=== PATIENT | male | born 1980 | race African-American/Black ===

== ENCOUNTER 2018-03-03 09:55 | Emergency (ER) | payer MEDICAID ==
[~2018-03-03] VITALS: Ht 190.5 cm; Wt 80.4 kg
[2018-03-03 10:12] VITALS: BP 114/64
[2018-03-03] MEDS ORDERED: KETOROLAC 30 MG/1 ML ONE (10:58)
[2018-03-03] MEDS ORDERED: KETOROLAC 30 MG/1 ML IM ONE (11:00)
== END 2018-03-03 11:18 | disposition home or self-care (01) ==
LOC: ED 11:12
DX: G89.11 Acute pain due to trauma (principal); M25.561 Pain in right knee; F17.200 Nicotine dependence, unspecified, uncomplicated
CPT/HCPCS: 73564; 96372; 99283; J1885

== ENCOUNTER 2018-04-18 23:12 | Emergency (ER) | payer MEDICAID ==
[~2018-04-18] VITALS: Ht 190.5 cm; Wt 87.3 kg
--- NOTE | 2018-04-18 23:25 | NUR ---
BIB [facility] FROM [facility] WITH CO SUDDEN ONSET GALO, "PRESSURE RIGHT EYE" X SEVERAL HOURS. ONSET WHILE SLEEPING. +LIGHT AND SOUND SENSITIVITY. PT REPORTS HX OF SAME, "IT USUALLY GOES AWAY IF I EAT". A&OX4; SPEECH CLEAR; FACE SYMMETRICAL; STRENGTH X4. PERRL. PT GIVEN PAIN MEDICATIONS AND ORAL GLUCOSE CATERING ATTENDANT FOR 10/10 PAIN AND FSBS OF 60. FSBS 120 UPON ARRIVAL. PT REPORTS TAKING RX'D INSULIN AROUND 1900 FOR HX OF DM.
[2018-04-18] MEDS ORDERED: PROCHLORPERAZINE 5 MG/ML, 2ML IVPush ONE (23:30)
[2018-04-18] MEDS ORDERED: SODIUM CHLORIDE 0.9% 1,000ML IVBOLUS ONE (23:30)
[2018-04-18] MEDS ORDERED: DIPHENHYDRAMINE 50 MG/ML, 1ML IVPush ONE (23:30)
[2018-04-18] MEDS ORDERED: SODIUM CHLORIDE FLUSH 10ML SYR IVF ONE (23:30)
[2018-04-18] MEDS ORDERED: PROCHLORPERAZINE 5 MG/ML, 2ML ONE (23:33)
[2018-04-18] MEDS ORDERED: DIPHENHYDRAMINE 50 MG/ML, 1ML ONE (23:33)
--- NOTE | 2018-04-18 23:41 | NUR ---
PT MEDICATED PER EMAR FOR 8 GALO.
[2018-04-18] MEDS ORDERED: OMNIPAQUE 350 MG/ML, 100ML BOTTLE ONE (23:55)
--- NOTE | 2018-04-19 00:53 | NUR ---
PT RESTING COMFORTABLY IN [place] WITH EYES CLOSED. EVEN/REGULAR RESPIRATIONS NOTED. BP/SPO2 MONITORING IN PLACE. AWAITING CT RESULTS
--- NOTE | 2018-04-19 01:24 | NUR ---
PT RESTING IN GURNEY; EASILY ARROUSABLE TO VOICE AND LIGHT PHYSICAL STIM. UPON RECHECK, FSBS 62. ERP AWARE. PT PROVIDED SANDWICH, STRING CHEESE AND JUICE AND IS EATING WO DIFFICULTY AT THIS TIME.
--- NOTE | 2018-04-19 01:39 | NUR ---
100% ON SANDWICH, CHEESE AND JUICE FINISHED. ERP AT BEDSIDE TO DISCUSS POC (OBS/FSBS RECHECK IN ONE HOUR/DISPO), PT DEMONSTRATES UNDERSTANDING.
[2018-04-19 01:42] LABS: MEAN CORPUSCULAR HGB CONC 35.2 g/dL (33.2-36.2); MEAN CORPUSCULAR VOLUME 90.9 fL (81-97); MEAN PLATELET VOLUME 7.2 fL (7.4-10.4); PLATELET COUNT 266 x10^3/uL (130-400); RED CELL DISTRIBUTION WIDTH 13.2 % (9.4-14.8)
[2018-04-19 01:47] LABS: ANION GAP 5 mmol/L (5-15); CALCIUM 7.9 mg/dL (8.5-10.1); CHLORIDE 107 mmol/L (98-107); CREATININE 0.98 mg/dL (0.7-1.3)
[2018-04-19 01:48] LABS: ALBUMIN 3.1 g/dL (3.4-5.0)
--- NOTE | 2018-04-19 02:24 | NUR ---
PT RESTING IN GURNEY WITH EYES CLOSED. EVEN/REGULAR RESPIRATIONS NOTED. PT MOSTLY SLEEPY, ARROUSABLE TO PHYSICAL STIM. FSBS RECHECKED, 130. BP/SPO2 MONITORING REMAIN IN PLACE.
[2018-04-19 02:32] LABS: BASOPHILS # (AUTO) 0.05 x10^3/uL (0-0.1); BASOPHILS % (AUTO) 1 % (0-1); EOSINOPHILS # (AUTO) 0.14 x10^3/uL (0-0.4); EOSINOPHILS % (AUTO) 2 % (1-7); LYMPHOCYTES # (AUTO) 2.08 x10^3/uL (1-3.4); LYMPHOCYTES % (AUTO) 29 % (22-44); MD SCAN; MONOCYTES % (AUTO) 7 % (2-9); NEUTROPHILS # (AUTO) 4.36 x10^3/uL (1.8-6.8); NEUTROPHILS % (AUTO) 61 % (42-75)
[2018-04-19 02:58] VITALS: BP 117/68
--- NOTE | 2018-04-19 02:58 | NUR ---
FSBS RECHECKED. ERP AWARE. POC IS DC.
--- NOTE | 2018-04-19 03:12 | NUR ---
DC EDUCATION PROVIDED, PT DEMONSTRATES UNDERSTANDING. PT TRANSFERED SELF STEADILY TO WHEELCHAIR AT DOORWAY. WHEELED TO DC WITH RN. PT DRESSED APPROPRIATELY FOR WEATHER. TAXI VOUCHER PROVIDED FOR SAFE TRANSPORT TO ASSISTED.
== END 2018-04-19 03:14 | disposition home or self-care (01) ==
LOC: ED 23:33
DX: E11.649 Type 2 diabetes mellitus with hypoglycemia without coma (principal); R51 Headache; F17.200 Nicotine dependence, unspecified, uncomplicated
CPT/HCPCS: 70450; 70496; 80048; 82040; 82962; 85025; 96361; 96374; 96375; 99284; J0780; J1200; J7030; Q9967

== ENCOUNTER 2018-04-21 09:15 | Emergency (ER) | payer MEDICAID ==
[~2018-04-21] VITALS: Ht 190.5 cm; Wt 83.0 kg
[2018-04-21] MEDS ORDERED: METOCLOPRAMIDE 5 MG/ML, 2ML IVPush ONE (10:00)
[2018-04-21] MEDS ORDERED: DIPHENHYDRAMINE 50 MG/ML, 1ML IVPush ONE (10:00)
[2018-04-21] MEDS ORDERED: SODIUM CHLORIDE FLUSH 10ML SYR IVF ONE (10:00)
--- NOTE | 2018-04-21 10:09 | NUR ---
PATIENT TO RAD
[2018-04-21] MEDS ORDERED: METOCLOPRAMIDE 5 MG/ML, 2ML ONE (10:26)
[2018-04-21] MEDS ORDERED: DIPHENHYDRAMINE 50 MG/ML, 1ML ONE (10:26)
--- NOTE | 2018-04-21 10:39 | NUR ---
PATIENT MOVED TO ROOM 4, IV ESTABLISHED. PATIENT MEDICATED AND WALKS TO BATHROOM. C/O PHOTPHOBIA BUT HAS STEADY GAIT
--- NOTE | 2018-04-21 11:15 | NUR ---
PATIENT REPORTS DECREASE IN GALO TO 7/10. COMFORT MEASURES TAKEN. PATIENT IN RECHECK
[2018-04-21 11:41] VITALS: BP 118/62
== END 2018-04-21 11:43 | disposition home or self-care (01) ==
LOC: ED 09:52
DX: R51 Headache (principal); R11.10 Vomiting, unspecified; E11.9 Type 2 diabetes mellitus without complications
CPT/HCPCS: 70450; 96374; 96375; 99284; J1200; J2765

== ENCOUNTER 2018-06-27 07:16 | Emergency (ER) | payer MEDICAID ==
[~2018-06-27] VITALS: Ht 190.5 cm; Wt 82.0 kg
[2018-06-27] MEDS ORDERED: HYDROcodone/APAP 5/325 TABLET PO PRN (07:30)
--- NOTE | 2018-06-27 07:30 | NUR ---
PT BIB [facility] FROM [facility] FOR RIGHT FOOT AND LEG PAIN. REPORTS PINS AND NEEDLES GOING FROM THE FOOT TO THE KNEE. REPORTS HISTORY OF DM II, AND NEUROPATHY. STATED THAT THE PINS AND NEEDLES STARTED YESTERDAY. DENIES INJURY. CMS INTACT. PT IS ALERT, ORIENTED, WITH NAD. FS 272, BP 115/71, HR 82, 100 RA.
[2018-06-27] MEDS ORDERED: HYDROcodone/APAP 5/325 TABLET ONE (07:33)
[2018-06-27] MEDS ORDERED: INSU100I34 SQ (07:36)
--- NOTE | 2018-06-27 07:47 | NUR ---
x ray at bedside.
[2018-06-27 08:02] LABS: MEAN CORPUSCULAR VOLUME 88.3 fL (81-97); MEAN PLATELET VOLUME 7.5 fL (7.4-10.4); PLATELET COUNT 291 x10^3/uL (130-400); RED BLOOD COUNT 4.93 x10^6/uL (4.38-5.82); RED CELL DISTRIBUTION WIDTH 13.1 % (9.4-14.8)
[2018-06-27 08:09] LABS: ALBUMIN 3.2 g/dL (3.4-5.0); ANION GAP 6 mmol/L (5-15); CALCIUM 7.9 mg/dL (8.5-10.1); CHLORIDE 109 mmol/L (98-107); CREATININE 1.01 mg/dL (0.7-1.3)
[2018-06-27 08:41] VITALS: BP 116/79
--- NOTE | 2018-06-27 08:42 | NUR ---
Pt requested light off. Pt given warm blanket. Pt is now resting in bed with eyes closed, respirations equal and non labored. NAD. Pt is connected to the monitor. Call light within reach.
[2018-06-27 08:53] LABS: MD YES
[2018-06-27 08:55] LABS: BAND#(MANUAL) 0.06 x10^3/uL; BANDS%(MANUAL) 1 % (0-7); BASOS#(MANUAL) 0.06 x10^3/uL (0-0.1); BASOS% (MANUAL) 1 % (0-1); EOS#(MANUAL) 0.11 x10^3/uL (0.0-0.4); EOS% (MANUAL) 2 % (1-7); LYMPH#(MANUAL) 2.18 x10^3/uL (1-3.4); LYMPHS% (MANUAL) 39 % (22-44); MONOS#(MANUAL) 0.11 x10^3/uL (0.3-2.7); MONOS% (MANUAL) 2 % (2-9); REACTIVE LYMPHS # (MANUAL) 0.06 x10^3/uL (0-0); REACTIVE LYMPHS % (MANUAL) 1 % (0-0); SEG#(MANUAL) 3.02 x10^3/uL (1.8-6.8); SEGS% (MANUAL) 54 % (42-75)
[2018-06-27 08:56] LABS: <RBC MORPHOLOGY> NORMAL
[2018-06-27 08:57] LABS: <PLATELET ESTIMATE> ADEQUATE; <PLT MORPHOLOGY> NORMAL PLT MORPH
--- NOTE | 2018-06-27 09:21 | NUR ---
PT AMBULATED TO THE BATHROOM WITH STEADY GAIT.
--- NOTE | 2018-06-27 09:46 | NUR ---
Patient given discharge instructions and they have confirmed that they understand the instructions. Patient ambulatory with steady gait.
== END 2018-06-27 09:48 | disposition home or self-care (01) ==
LOC: ED 08:00
DX: M79.671 Pain in right foot (principal); E11.65 Type 2 diabetes mellitus with hyperglycemia; Z76.0 Encounter for issue of repeat prescription; F17.210 Nicotine dependence, cigarettes, uncomplicated
CPT/HCPCS: 36415; 80048; 82040; 85025; 99284

== ENCOUNTER 2019-02-19 08:37 | Inpatient (IN) | payer MEDICAID ==
[~2019-02-19] VITALS: Ht 190.5 cm; Wt 84.4 kg
[~2019-02-19 08:37] MED LIST: INSU100I34 SQ
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
[2019-02-19 09:09] LABS: MICROSCOPIC NOT IND
[2019-02-19 09:12] LABS: CULTURE INDICATED? NO
[2019-02-19 09:32] LABS: BASOPHILS # (AUTO) 0.02 x10^3/uL (0-0.1); BASOPHILS % (AUTO) 0 % (0-1); EOSINOPHILS # (AUTO) 0.02 x10^3/uL (0-0.4); EOSINOPHILS % (AUTO) 0 % (1-7); LYMPHOCYTES % (AUTO) 18 % (22-44); MD NO; MEAN CORPUSCULAR HEMOGLOBIN 31.2 pg (27.5-34.5); MEAN CORPUSCULAR HGB CONC 33.9 g/dL (33.2-36.2); MEAN CORPUSCULAR VOLUME 92.2 fL (81-97); MEAN PLATELET VOLUME 7.6 fL (7.4-10.4); MONOCYTES # (AUTO) 0.44 x10^3/uL (0.2-0.8); MONOCYTES % (AUTO) 6 % (2-9); NEUTROPHILS # (AUTO) 5.54 x10^3/uL (1.8-6.8); NEUTROPHILS % (AUTO) 76 % (42-75); PH, VENOUS 7.362 pH (7.320-7.420); PLATELET COUNT 290 x10^3/uL (130-400); RED BLOOD COUNT 5.52 x10^6/uL (4.38-5.82); RED CELL DISTRIBUTION WIDTH 13.1 % (9.4-14.8)
[2019-02-19 09:33] LABS: FIO2 ROOM AIR %
--- NOTE | 2019-02-19 10:04 | NUR ---
Patient is resting comfortably in bed. Vital Signs within normal limits.
[2019-02-19 10:13] LABS: ACETONE, SERUM Small (20mg/dL) mg/dL (Negative); ALBUMIN 3.7 g/dL (3.4-5.0); ANION GAP 11 mmol/L (5-15); CALCIUM 8.6 mg/dL (8.5-10.1); CHLORIDE 90 mmol/L (98-107); CREATININE 1.42 mg/dL (0.7-1.3)
[2019-02-19] MEDS ORDERED: INSULIN REGULAR 100 UNITS/ML, 3ML VIAL SQ-INSULIN ONE (10:30)
[2019-02-19] MEDS ORDERED: SODIUM CHLORIDE 0.9% 1,000ML IVBOLUS ONE ×2 (10:30→12:00)
[2019-02-19] MEDS ORDERED: INSULIN SINGLE DOSE, ER ONE (10:41)
--- NOTE | 2019-02-19 11:01 | NUR ---
REPORT CALLED TO CADENCE STEPHENSON. NO QUESTIONS AT THIS TIME. PATIENT AWARE OF TRANSFER.
--- NOTE | 2019-02-19 11:24 | NUR ---
REPORT CALLED TO ROSSANA STEPHENSON. PATIET AWARE OF TRANSFER.
[2019-02-19] MEDS ORDERED: INSULIN LISPRO 100 UNITS/ML, PEN SQ-INSULIN SCH (12:00)
[2019-02-19] MEDS ORDERED: POLYETHYLENE GLYCOL 17 GM PACKET PO PRN (12:00)
[2019-02-19] MEDS ORDERED: LABETALOL 5MG/ML, 20ML IVPush PRN (12:00)
[2019-02-19] MEDS ORDERED: BISACODYL 10 MG SUPP PR PRN (12:00)
[2019-02-19] MEDS ORDERED: ONDANSETRON 2MG/ML, 2ML IVPush PRN (12:00)
[2019-02-19] MEDS ORDERED: ONDANSETRON ODT 4 MG PO PRN (12:00)
[2019-02-19] MEDS: SODIUM CHLORIDE 0.9% 1,000 ML IV SCH ×2 (12:05→19:33)
[2019-02-19] MEDS: ENOXAPARIN 40 MG/0.4 ML SQ SCH (12:17)
[2019-02-19] MEDS: INSULIN GLARGINE 100 UNITS/ML, PEN SQ-INSULIN SCH ×2 (12:19→20:41)
[2019-02-19 15:07] LABS: AMPHETAMINE SCREEN, URINE Negative (Negative); BARBITURATE SCREEN, URINE Negative (Negative)
[2019-02-19 15:20] LABS: BENZODIAZEPINE SCREEN, URINE Negative (Negative); CANNABINOID SCREEN, URINE Positive (Negative); COCAINE SCREEN, URINE Negative (Negative); METHADONE SCREEN, URINE Negative (Negative); OPIATE SCREEN, URINE Negative (Negative)
[2019-02-19] MEDS: INSULIN LISPRO 100 UNITS/ML, PEN SQ-INSULIN SCH ×2 (16:00→20:40)
[2019-02-19 16:53] LABS: ANION GAP 7 mmol/L (5-15); CALCIUM 8.1 mg/dL (8.5-10.1); CHLORIDE 106 mmol/L (98-107); CREATININE 0.85 mg/dL (0.7-1.3)
[2019-02-19] MEDS: ACETAMINOPHEN 325 MG TABLET PO PRN (17:55)
[2019-02-19 19:05] VITALS: BP 150/89
[2019-02-20 01:57] VITALS: BP 141/93
[2019-02-20] MEDS: SODIUM CHLORIDE 0.9% 1,000 ML IV SCH ×4 (05:04→18:54)
[2019-02-20 05:49] LABS: BASOPHILS # (AUTO) 0.04 x10^3/uL (0-0.1); BASOPHILS % (AUTO) 1 % (0-1); EOSINOPHILS # (AUTO) 0.05 x10^3/uL (0-0.4); EOSINOPHILS % (AUTO) 1 % (1-7); LYMPHOCYTES # (AUTO) 1.98 x10^3/uL (1-3.4); LYMPHOCYTES % (AUTO) 24 % (22-44); MD NO; MEAN CORPUSCULAR HEMOGLOBIN 31.8 pg (27.5-34.5); MEAN CORPUSCULAR HGB CONC 34.1 g/dL (33.2-36.2); MEAN CORPUSCULAR VOLUME 93.2 fL (81-97); MEAN PLATELET VOLUME 7.1 fL (7.4-10.4); MONOCYTES # (AUTO) 0.51 x10^3/uL (0.2-0.8); MONOCYTES % (AUTO) 6 % (2-9); NEUTROPHILS # (AUTO) 5.69 x10^3/uL (1.8-6.8); NEUTROPHILS % (AUTO) 69 % (42-75); PLATELET COUNT 305 x10^3/uL (130-400); RED BLOOD COUNT 4.97 x10^6/uL (4.38-5.82); RED CELL DISTRIBUTION WIDTH 13.6 % (9.4-14.8)
[2019-02-20 06:01] LABS: ALANINE AMINOTRANSFERASE 25 U/L (12-78); ALBUMIN 2.9 g/dL (3.4-5.0); ANION GAP 6 mmol/L (5-15); CALCIUM 7.8 mg/dL (8.5-10.1); CHLORIDE 103 mmol/L (98-107); CREATININE 0.81 mg/dL (0.7-1.3)
[2019-02-20 06:03] LABS: ALKALINE PHOSPHATASE 105 U/L (45-117); BILIRUBIN,TOTAL 0.4 mg/dL (0.2-1.0)
[2019-02-20 07:05] VITALS: BP 144/97
[2019-02-20] MEDS: SENNA/DOCUSATE TABLET PO SCH (09:00)
[2019-02-20] MEDS: INSULIN LISPRO 100 UNITS/ML, PEN SQ-INSULIN SCH ×4 (09:13→20:37)
[2019-02-20] MEDS: INSULIN GLARGINE 100 UNITS/ML, PEN SQ-INSULIN SCH ×2 (09:13→20:37)
[2019-02-20] MEDS ORDERED: SODIUM CHLORIDE 0.9% 1,000 ML IV SCH (11:47)
[2019-02-20] MEDS ORDERED: INSULIN LISPRO 100 UNITS/ML, PEN SQ-INSULIN ONE (13:00)
[2019-02-20 14:00] VITALS: BP 145/98
[2019-02-20] MEDS: CEFTAROLINE 600 MG in SODIUM CHLORIDE 0.9% 100 ML IV SCH (14:08)
[2019-02-20] MEDS ORDERED: INSULIN LISPRO 100 UNITS/ML, PEN SQ-INSULIN SCH (16:00)
[2019-02-20] MEDS ORDERED: FLUO20CA19 PO (16:15)
[2019-02-20] MEDS ORDERED: ASEN5TAB7 SL (16:15)
[2019-02-20 18:42] VITALS: BP 129/85
[2019-02-20] MEDS: ACETAMINOPHEN 325 MG TABLET PO PRN (20:27)
[2019-02-20] MEDS: ENOXAPARIN 40 MG/0.4 ML SQ SCH (20:27)
[2019-02-21 01:24] VITALS: BP 123/70
[2019-02-21] MEDS: SODIUM CHLORIDE 0.9% 1,000 ML IV SCH ×3 (02:04→19:37)
[2019-02-21] MEDS: CEFTAROLINE 600 MG in SODIUM CHLORIDE 0.9% 100 ML IV SCH ×2 (02:04→14:32)
[2019-02-21 04:54] LABS: MD NO; MEAN PLATELET VOLUME 7.3 fL (7.4-10.4)
[2019-02-21 05:06] LABS: ANION GAP 6 mmol/L (5-15); CALCIUM 7.9 mg/dL (8.5-10.1); CHLORIDE 104 mmol/L (98-107)
[2019-02-21 05:07] LABS: CREATININE 0.86 mg/dL (0.7-1.3)
[2019-02-21 05:09] LABS: BASOPHILS # (AUTO) 0.04 x10^3/uL (0-0.1); BASOPHILS % (AUTO) 1 % (0-1); EOSINOPHILS # (AUTO) 0.08 x10^3/uL (0-0.4); EOSINOPHILS % (AUTO) 1 % (1-7); LYMPHOCYTES # (AUTO) 2.01 x10^3/uL (1-3.4); LYMPHOCYTES % (AUTO) 23 % (22-44); MEAN CORPUSCULAR HEMOGLOBIN 31.6 pg (27.5-34.5); MEAN CORPUSCULAR HGB CONC 34.5 g/dL (33.2-36.2); MEAN CORPUSCULAR VOLUME 91.7 fL (81-97); MONOCYTES # (AUTO) 0.75 x10^3/uL (0.2-0.8); MONOCYTES % (AUTO) 8 % (2-9); NEUTROPHILS # (AUTO) 6.03 x10^3/uL (1.8-6.8); NEUTROPHILS % (AUTO) 68 % (42-75); PLATELET COUNT 290 x10^3/uL (130-400); RED BLOOD COUNT 4.91 x10^6/uL (4.38-5.82); RED CELL DISTRIBUTION WIDTH 13.3 % (9.4-14.8)
[2019-02-21 05:20] LABS: HEMOGLOBIN A1C 8.8 % (4.2-6.3)
[2019-02-21 07:15] VITALS: BP 138/91
[2019-02-21] MEDS: INSULIN GLARGINE 100 UNITS/ML, PEN SQ-INSULIN SCH (07:57)
[2019-02-21] MEDS: INSULIN LISPRO 100 UNITS/ML, PEN SQ-INSULIN SCH ×3 (07:58→16:03)
[2019-02-21] MEDS: SENNA/DOCUSATE TABLET PO SCH (07:58)
[2019-02-21 14:00] VITALS: BP 144/88
[2019-02-21] MEDS ORDERED: INSULIN GLARGINE 100 UNITS/ML, PEN SQ-INSULIN SCH (17:00)
[2019-02-21 20:12] VITALS: BP 138/83
[2019-02-21] MEDS ORDERED: INSULIN LISPRO 100 UNIT/ML, 3ML VIAL SQ-INSULIN SCH (21:00)
[2019-02-21] MEDS: ENOXAPARIN 40 MG/0.4 ML SQ SCH (21:00)
[2019-02-21] MEDS ORDERED: INSULIN GLARGINE 100 UNITS/ML, PEN SQ-INSULIN ONE (21:30)
[2019-02-21] MEDS: ACETAMINOPHEN 325 MG TABLET PO PRN (22:00)
[2019-02-22 02:05] VITALS: BP 126/76
[2019-02-22] MEDS: SODIUM CHLORIDE 0.9% 1,000 ML IV SCH ×2 (02:32→20:20)
[2019-02-22] MEDS: CEFTAROLINE 600 MG in SODIUM CHLORIDE 0.9% 100 ML IV SCH ×2 (02:47→17:02)
[2019-02-22] MEDS ORDERED: INSULIN GLARGINE 100 UNITS/ML, PEN SQ-INSULIN SCH (05:00)
[2019-02-22 05:44] LABS: INTERNATIONAL NORMALIZED RATIO 0.96 (0.93-1.1); PROTHROMBIN TIME 10.1 Seconds (9.6-11.5)
[2019-02-22 05:48] LABS: ANION GAP 3 mmol/L (5-15); CALCIUM 8.1 mg/dL (8.5-10.1); CHLORIDE 107 mmol/L (98-107)
[2019-02-22 05:49] LABS: CREATININE 0.77 mg/dL (0.7-1.3)
[2019-02-22 07:29] VITALS: BP 134/79
[2019-02-22] MEDS: INSULIN LISPRO 100 UNITS/ML, PEN SQ-INSULIN SCH ×4 (07:49→22:12)
[2019-02-22] MEDS: INSULIN GLARGINE 100 UNITS/ML, PEN SQ-INSULIN SCH ×2 (07:50→22:11)
[2019-02-22] MEDS: SENNA/DOCUSATE TABLET PO SCH (07:50)
[2019-02-22 12:52] VITALS: BP 110/72
[2019-02-22] MEDS ORDERED: FENTANYL PF 100 MCG/2ML ONE ×2 (15:52→16:15)
[2019-02-22] MEDS ORDERED: MIDAZOLAM 1 MG/ML, 2ML ONE (15:53)
[2019-02-22] MEDS ORDERED: METOCLOPRAMIDE 5 MG/ML, 2ML ONE (15:55)
[2019-02-22] MEDS ORDERED: ONDANSETRON 2MG/ML, 2ML ONE (15:55)
[2019-02-22] MEDS ORDERED: KETOROLAC 30 MG/1 ML ONE (15:59)
[2019-02-22] MEDS ORDERED: LABETALOL 5MG/ML, 20ML IV PRN (16:00)
[2019-02-22] MEDS ORDERED: ACETAMINOPHEN 325 MG TABLET PO PRN (16:00)
[2019-02-22] MEDS ORDERED: OXYcodone 5 MG/5 ML ORAL.SOL UDC PO PRN (16:00)
[2019-02-22] MEDS ORDERED: hydrALAzine 20 MG/ML, 1ML IV PRN (16:00)
[2019-02-22] MEDS ORDERED: FENTANYL PF 100 MCG/2ML IV PRN (16:00)
[2019-02-22] MEDS ORDERED: MEPERIDINE/PF 25MG/ML,1ML IVPush PRN (16:00)
[2019-02-22] MEDS ORDERED: PROMETHAZINE 25 MG/ML, 1ML IV PRN (16:00)
[2019-02-22] MEDS ORDERED: HYDROmorphone 2 MG/ML, 1ML IVPush PRN (16:00)
[2019-02-22] MEDS ORDERED: ONDANSETRON 2MG/ML, 2ML IV PRN (16:00)
[2019-02-22] MEDS: NICOTINE 21 MG/24 HR PATCH.TD24 TD SCH (18:10)
[2019-02-22 19:14] VITALS: BP 113/66
[2019-02-22] MEDS: ENOXAPARIN 40 MG/0.4 ML SQ SCH (22:09)
[2019-02-23 00:16] VITALS: BP 126/75
[2019-02-23] MEDS: SODIUM CHLORIDE 0.9% 1,000 ML IV SCH ×3 (02:45→20:59)
[2019-02-23] MEDS: ACETAMINOPHEN 325 MG TABLET PO PRN (02:57)
[2019-02-23] MEDS: CEFTAROLINE 600 MG in SODIUM CHLORIDE 0.9% 100 ML IV SCH ×2 (05:11→16:40)
[2019-02-23 05:49] LABS: ALBUMIN 2.4 g/dL (3.4-5.0); ANION GAP 4 mmol/L (5-15); CHLORIDE 108 mmol/L (98-107)
[2019-02-23 05:53] LABS: ALANINE AMINOTRANSFERASE 24 U/L (12-78); ALKALINE PHOSPHATASE 93 U/L (45-117); BILIRUBIN,TOTAL 0.3 mg/dL (0.2-1.0); CREATININE 0.87 mg/dL (0.7-1.3); TOTAL PROTEIN 6.2 g/dL (6.4-8.2)
[2019-02-23 06:00] LABS: BASOPHILS # (AUTO) 0.04 x10^3/uL (0-0.1); BASOPHILS % (AUTO) 1 % (0-1); EOSINOPHILS # (AUTO) 0.05 x10^3/uL (0-0.4); EOSINOPHILS % (AUTO) 1 % (1-7); LYMPHOCYTES # (AUTO) 2.24 x10^3/uL (1-3.4); LYMPHOCYTES % (AUTO) 34 % (22-44); MD NO; MEAN CORPUSCULAR HEMOGLOBIN 31.5 pg (27.5-34.5); MEAN CORPUSCULAR HGB CONC 34.4 g/dL (33.2-36.2); MEAN CORPUSCULAR VOLUME 91.5 fL (81-97); MEAN PLATELET VOLUME 6.9 fL (7.4-10.4); MONOCYTES # (AUTO) 0.55 x10^3/uL (0.2-0.8); MONOCYTES % (AUTO) 8 % (2-9); NEUTROPHILS # (AUTO) 3.72 x10^3/uL (1.8-6.8); NEUTROPHILS % (AUTO) 56 % (42-75); PLATELET COUNT 332 x10^3/uL (130-400); RED BLOOD COUNT 4.44 x10^6/uL (4.38-5.82); RED CELL DISTRIBUTION WIDTH 13.1 % (9.4-14.8)
[2019-02-23 06:35] VITALS: BP 125/84
[2019-02-23] MEDS: INSULIN LISPRO 100 UNITS/ML, PEN SQ-INSULIN SCH ×4 (08:35→21:01)
[2019-02-23] MEDS: NICOTINE 21 MG/24 HR PATCH.TD24 TD SCH (08:36)
[2019-02-23] MEDS: INSULIN GLARGINE 100 UNITS/ML, PEN SQ-INSULIN SCH ×2 (08:36→21:00)
[2019-02-23] MEDS: SENNA/DOCUSATE TABLET PO SCH (08:36)
[2019-02-23 13:14] VITALS: BP 123/77
[2019-02-23 18:30] VITALS: BP 130/80
[2019-02-23] MEDS: ENOXAPARIN 40 MG/0.4 ML SQ SCH (20:59)
[2019-02-24 01:02] VITALS: BP 132/86
[2019-02-24] MEDS: SODIUM CHLORIDE 0.9% 1,000 ML IV SCH ×4 (02:46→23:43)
[2019-02-24 04:52] LABS: BASOPHILS # (AUTO) 0.07 x10^3/uL (0-0.1); BASOPHILS % (AUTO) 1 % (0-1); EOSINOPHILS % (AUTO) 1 % (1-7); LYMPHOCYTES # (AUTO) 2.52 x10^3/uL (1-3.4); LYMPHOCYTES % (AUTO) 36 % (22-44); MD NO; MEAN CORPUSCULAR HEMOGLOBIN 31.4 pg (27.5-34.5); MEAN CORPUSCULAR HGB CONC 33.7 g/dL (33.2-36.2); MEAN CORPUSCULAR VOLUME 93.2 fL (81-97); MEAN PLATELET VOLUME 6.9 fL (7.4-10.4); MONOCYTES % (AUTO) 8 % (2-9); NEUTROPHILS # (AUTO) 3.82 x10^3/uL (1.8-6.8); NEUTROPHILS % (AUTO) 54 % (42-75); PLATELET COUNT 379 x10^3/uL (130-400); RED BLOOD COUNT 4.68 x10^6/uL (4.38-5.82); RED CELL DISTRIBUTION WIDTH 13.1 % (9.4-14.8)
[2019-02-24 05:06] LABS: ANION GAP 4 mmol/L (5-15); CALCIUM 8.1 mg/dL (8.5-10.1); CHLORIDE 104 mmol/L (98-107)
[2019-02-24 05:08] LABS: CREATININE 1.09 mg/dL (0.7-1.3)
[2019-02-24] MEDS: CEFTAROLINE 600 MG in SODIUM CHLORIDE 0.9% 100 ML IV SCH ×2 (05:09→17:12)
[2019-02-24 06:54] VITALS: BP 128/79
[2019-02-24] MEDS: INSULIN GLARGINE 100 UNITS/ML, PEN SQ-INSULIN SCH ×2 (08:12→20:47)
[2019-02-24] MEDS: SENNA/DOCUSATE TABLET PO SCH (08:13)
[2019-02-24] MEDS: NICOTINE 21 MG/24 HR PATCH.TD24 TD SCH (08:13)
[2019-02-24] MEDS: INSULIN LISPRO 100 UNITS/ML, PEN SQ-INSULIN SCH ×4 (08:13→20:51)
[2019-02-24 12:21] VITALS: BP 132/85
[2019-02-24] MEDS ORDERED: PROPOFOL 10 MG/ML, 20ML ONE (16:00)
[2019-02-24 19:21] VITALS: BP 134/81
[2019-02-24] MEDS: ENOXAPARIN 40 MG/0.4 ML SQ SCH (20:45)
[2019-02-25 00:22] VITALS: BP 117/78
[2019-02-25] MEDS: CEFTAROLINE 600 MG in SODIUM CHLORIDE 0.9% 100 ML IV SCH ×2 (05:10→17:11)
[2019-02-25] MEDS: SODIUM CHLORIDE 0.9% 1,000 ML IV SCH ×3 (05:12→17:00)
[2019-02-25 07:38] VITALS: BP 130/86
[2019-02-25] MEDS: SENNA/DOCUSATE TABLET PO SCH (09:00)
[2019-02-25] MEDS: INSULIN LISPRO 100 UNITS/ML, PEN SQ-INSULIN SCH ×4 (09:17→22:53)
[2019-02-25] MEDS: NICOTINE 21 MG/24 HR PATCH.TD24 TD SCH (09:50)
[2019-02-25] MEDS: INSULIN GLARGINE 100 UNITS/ML, PEN SQ-INSULIN SCH ×2 (09:51→22:53)
[2019-02-25 13:51] VITALS: BP 136/79
[2019-02-25 19:09] VITALS: BP 131/94
[2019-02-25] MEDS: ENOXAPARIN 40 MG/0.4 ML SQ SCH (21:00)
[2019-02-26 00:29] VITALS: BP 117/72
[2019-02-26] MEDS: SODIUM CHLORIDE 0.9% 1,000 ML IV SCH ×3 (02:07→14:36)
[2019-02-26] MEDS: CEFTAROLINE 600 MG in SODIUM CHLORIDE 0.9% 100 ML IV SCH (05:29)
[2019-02-26 06:02] LABS: BASOPHILS # (AUTO) 0.05 x10^3/uL (0-0.1); BASOPHILS % (AUTO) 1 % (0-1); EOSINOPHILS # (AUTO) 0.11 x10^3/uL (0-0.4); EOSINOPHILS % (AUTO) 2 % (1-7); LYMPHOCYTES # (AUTO) 2.12 x10^3/uL (1-3.4); LYMPHOCYTES % (AUTO) 27 % (22-44); MD NO; MEAN CORPUSCULAR HEMOGLOBIN 31.7 pg (27.5-34.5); MEAN CORPUSCULAR HGB CONC 34.5 g/dL (33.2-36.2); MEAN CORPUSCULAR VOLUME 91.8 fL (81-97); MEAN PLATELET VOLUME 6.4 fL (7.4-10.4); MONOCYTES # (AUTO) 0.63 x10^3/uL (0.2-0.8); MONOCYTES % (AUTO) 8 % (2-9); NEUTROPHILS # (AUTO) 4.85 x10^3/uL (1.8-6.8); NEUTROPHILS % (AUTO) 62 % (42-75); PLATELET COUNT 414 x10^3/uL (130-400); RED BLOOD COUNT 4.77 x10^6/uL (4.38-5.82); RED CELL DISTRIBUTION WIDTH 13.2 % (9.4-14.8)
[2019-02-26 06:12] LABS: CHLORIDE 105 mmol/L (98-107)
[2019-02-26 06:26] LABS: ANION GAP 5 mmol/L (5-15); CALCIUM 8.7 mg/dL (8.5-10.1); CREATININE 0.98 mg/dL (0.7-1.3)
[2019-02-26 06:53] VITALS: BP 115/73
[2019-02-26] MEDS: INSULIN LISPRO 100 UNITS/ML, PEN SQ-INSULIN SCH ×2 (08:44→11:58)
[2019-02-26] MEDS: SENNA/DOCUSATE TABLET PO SCH (08:47)
[2019-02-26] MEDS: NICOTINE 21 MG/24 HR PATCH.TD24 TD SCH (08:48)
[2019-02-26] MEDS: INSULIN GLARGINE 100 UNITS/ML, PEN SQ-INSULIN SCH (08:49)
[2019-02-26 12:37] VITALS: BP 100/64
[2019-02-26] MEDS ORDERED: METF500T PO (14:36)
[2019-02-26] MEDS ORDERED: INSU100I34 SQ (14:41)
[2019-02-26] MEDS ORDERED: CEPH-368 PO (14:44)
== END 2019-02-26 15:44 | disposition home or self-care (01) | DRG 579 ==
LOC: ED 10:48 → EDIP 11:07 → CCU 11:54 → 3N 17:46 → DCLOUNGE 02-26 15:36
PROVIDERS: ADMIT Internal Medicine; ATTEND Hospitalist
PROC: 0JBJ0ZZ Excision of Right Hand Subcutaneous Tissue and Fascia, Open Approach (ICD-10-PCS; principal; 2019-02-22 15:15)
DX: L02.511 Cutaneous abscess of right hand (principal); E11.00 Type 2 diabetes mellitus with hyperosmolarity without nonketotic hyperglycemic-hyperosmolar coma (NKHHC); N17.0 Acute kidney failure with tubular necrosis; E87.1 Hypo-osmolality and hyponatremia; E87.0 Hyperosmolality and hypernatremia; F15.20 Other stimulant dependence, uncomplicated; I10 Essential (primary) hypertension; F17.210 Nicotine dependence, cigarettes, uncomplicated; E87.6 Hypokalemia; B95.61 Methicillin susceptible Staphylococcus aureus infection as the cause of diseases classified elsewhere; F19.10 Other psychoactive substance abuse, uncomplicated; L03.011 Cellulitis of right finger; Z79.4 Long term (current) use of insulin; Z82.49 Family history of ischemic heart disease and other diseases of the circulatory system; Z91.19 Patient's noncompliance with other medical treatment and regimen
CPT/HCPCS: 36415; 80048; 80053; 80307; 81003; 82010; 82040; 82803; 82947; 82962; 83036; 83735; 84100; 85025; 85610; 87070; 87075; 87077; 87081; 87147; 87186; 87205; 96360; 96361; 96372; G0378; J0712; J1650; J1885; J2250; J2405; J2704; J3010; J1815; J2765; J7030

== ENCOUNTER 2019-03-14 10:53 | Emergency (ER) | payer MEDICAID ==
[~2019-03-14] VITALS: Ht 190.5 cm; Wt 77.3 kg
[~2019-03-14 10:53] MED LIST changes: +ASEN5TAB7 SL; +CEPH-368 PO; +FLUO20CA19 PO; +METF500T PO
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
--- NOTE | 2019-03-14 11:49 | NUR ---
FSBS OBTAINED=-READ "HIGH". PROVIDER/NAVY AIRSPACE OFFICER MADE AWARE. TO PLACE PIV/DRAW LAB/START 1L NS AND MOVE TO CORE ROOM IN PREPARATION FOR ADMIT REPORT TO LUC STEPHENSON WITH ER ROOM 36
--- NOTE | 2019-03-14 11:59 | NUR ---
PIV PLACED-FULL SET OF LABS DRAWN INCLUDING VBG BY DISTRIBUTION DRIVER
[2019-03-14] MEDS ORDERED: SODIUM CHLORIDE FLUSH 10ML SYR IVF ONE (12:00)
[2019-03-14] MEDS ORDERED: SODIUM CHLORIDE 0.9% 1,000ML IVBOLUS ONE ×2 (12:00→13:00)
--- NOTE | 2019-03-14 12:00 | NUR ---
SHIRA CHANGED TO 3 BASED ON PATIENT ACUITY
--- NOTE | 2019-03-14 12:05 | NUR ---
1L NS BOLUS STARTED
[2019-03-14 12:07] LABS: PH, VENOUS 7.361 pH (7.320-7.420)
[2019-03-14 12:13] LABS: FIO2 ROOM AIR %
[2019-03-14 12:16] LABS: BASOPHILS # (AUTO) 0.03 x10^3/uL (0-0.1); BASOPHILS % (AUTO) 0 % (0-1); EOSINOPHILS % (AUTO) 1 % (1-7); LYMPHOCYTES # (AUTO) 2.19 x10^3/uL (1-3.4); LYMPHOCYTES % (AUTO) 28 % (22-44); MD NO; MEAN CORPUSCULAR HEMOGLOBIN 31.5 pg (27.5-34.5); MEAN CORPUSCULAR VOLUME 92.8 fL (81-97); MEAN PLATELET VOLUME 7.6 fL (7.4-10.4); MONOCYTES # (AUTO) 0.53 x10^3/uL (0.2-0.8); MONOCYTES % (AUTO) 7 % (2-9); NEUTROPHILS # (AUTO) 4.85 x10^3/uL (1.8-6.8); NEUTROPHILS % (AUTO) 63 % (42-75); PLATELET COUNT 332 x10^3/uL (130-400); RED BLOOD COUNT 5.47 x10^6/uL (4.38-5.82); RED CELL DISTRIBUTION WIDTH 13.1 % (9.4-14.8)
[2019-03-14 12:40] LABS: ALANINE AMINOTRANSFERASE 44 U/L (12-78); ALBUMIN 3.9 g/dL (3.4-5.0); ALKALINE PHOSPHATASE 197 U/L (45-117); ANION GAP 8 mmol/L (5-15); BILIRUBIN,TOTAL 0.5 mg/dL (0.2-1.0); CALCIUM 9.2 mg/dL (8.5-10.1); CHLORIDE 89 mmol/L (98-107); CREATININE 1.65 mg/dL (0.7-1.3); TOTAL PROTEIN 8.6 g/dL (6.4-8.2)
[2019-03-14 12:50] LABS: ACETONE, SERUM Trace (10mg/dL) mg/dL (Negative)
[2019-03-14] MEDS ORDERED: INSULIN SINGLE DOSE, ER ONE (12:52)
--- NOTE | 2019-03-14 12:56 | NUR ---
NOTIFIED OF CRITICAL GLUCOSE OF 763. N/O RECEIVED AND CARRIED OUT. AWARE PT STATES HE CANNOT PROVIDE A URINE SAMPLE, MD DOES NOT WANT A STRAIGHT CATH TO COLLECT UA AT THIS TIME. PT SLEEPING ON [facility]. CRISTAL.
[2019-03-14] MEDS ORDERED: INSULIN REGULAR 100 UNITS/ML, 3ML VIAL SQ-INSULIN ONE (13:00)
--- NOTE | 2019-03-14 13:00 | NUR ---
ALL RESULTS ARE BACK AT THIS TIME. CHART UP FOR RECHECK
--- NOTE | 2019-03-14 14:28 | NUR ---
PT PROVIDED URINE SAMPLE. UA COLLECTED AND SENT TO LAB.
[2019-03-14 14:42] LABS: MICROSCOPIC NOT IND
[2019-03-14 14:59] VITALS: BP 117/82
--- NOTE | 2019-03-14 15:00 | NUR ---
PT RESTING ON GURNEY, BUT AWAKENED WHEN POC GLUCOSE TESTED. CRISTAL.
[2019-03-14 15:01] LABS: CULTURE INDICATED? NO
--- NOTE | 2019-03-14 16:43 | NUR ---
PT LEFT ED PRIOR TO RECEIVING DC INSTRUCTIONS. PT REMOVED OWN IV WITH TIP INTACT.
== END 2019-03-14 16:44 | disposition left against medical advice (07) ==
LOC: ED 12:18
DX: E11.65 Type 2 diabetes mellitus with hyperglycemia (principal); F17.200 Nicotine dependence, unspecified, uncomplicated; L02.511 Cutaneous abscess of right hand
CPT/HCPCS: 80053; 81003; 82010; 82803; 82962; 85025; 96360; 96372; 99283; J1815; J7030

== ENCOUNTER 2019-10-19 00:21 | Inpatient (IN) | payer MEDICAID ==
[~2019-10-19] VITALS: Ht 190.5 cm; Wt 61.9 kg
--- NOTE | 2019-10-19 00:27 | NUR ---
Pt presents to ed c/o si/sa. States took "more than normal" amounts of heroine to attempt to harmself this am. FSBG of "hi" noted by [facility]. Pt mucous membranes appear moist. 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 All monitoring applied. Vss. Call light within reach.
--- NOTE | 2019-10-19 00:33 | NUR ---
Blood sugar of "hi" noted at this time. made aware.
--- NOTE | 2019-10-19 00:34 | NUR ---
Pt appears a little sleepy, but wakes up and converses. A+ox4. Neuro fully intact.
--- NOTE | 2019-10-19 00:40 | NUR ---
Verbal order of 1 L ns bolus started via md.
[2019-10-19 01:00] LABS: PH, VENOUS 7.323 pH (7.320-7.420)
[2019-10-19] MEDS ORDERED: SODIUM CHLORIDE FLUSH 10ML SYR IVF ONE (01:00)
[2019-10-19] MEDS ORDERED: SODIUM CHLORIDE 0.9% 1,000ML IVBOLUS ONE ×2 (01:00→02:00)
[2019-10-19 01:02] LABS: BASOPHILS # (AUTO) 0.07 x10^3/uL (0-0.1); BASOPHILS % (AUTO) 1 % (0-1); EOSINOPHILS # (AUTO) 0.11 x10^3/uL (0-0.4); EOSINOPHILS % (AUTO) 2 % (1-7); LYMPHOCYTES % (AUTO) 54 % (22-44); MD NO; MEAN CORPUSCULAR HEMOGLOBIN 30.6 pg (27.5-34.5); MEAN CORPUSCULAR HGB CONC 34.8 g/dL (33.2-36.2); MEAN CORPUSCULAR VOLUME 87.9 fL (81-97); MEAN PLATELET VOLUME 7.8 fL (7.4-10.4); MONOCYTES # (AUTO) 0.41 x10^3/uL (0.2-0.8); MONOCYTES % (AUTO) 8 % (2-9); NEUTROPHILS # (AUTO) 1.68 x10^3/uL (1.8-6.8); NEUTROPHILS % (AUTO) 34 % (42-75); PLATELET COUNT 248 x10^3/uL (130-400); RED BLOOD COUNT 4.64 x10^6/uL (4.38-5.82)
[2019-10-19 01:12] LABS: ALBUMIN 3.1 g/dL (3.4-5.0); ANION GAP 7 mmol/L (5-15); CALCIUM 7.6 mg/dL (8.5-10.1); CHLORIDE 95 mmol/L (98-107); CREATININE 1.51 mg/dL (0.7-1.3)
--- NOTE | 2019-10-19 01:41 | NUR ---
All belongings put in 2 of 2 belongings bags and backpack.
--- NOTE | 2019-10-19 01:41 | NUR ---
Second fingerstick of "hi" reported to .
--- NOTE | 2019-10-19 01:47 | NUR ---
Pt given 2nd and 3rd liter ns bolus, per md verbal order.
[2019-10-19] MEDS ORDERED: INSULIN SINGLE DOSE, ER ONE (01:56)
[2019-10-19] MEDS ORDERED: INSULIN REGULAR 100 UNITS/ML, 3ML VIAL SQ-INSULIN ONE (02:00)
[2019-10-19] MEDS ORDERED: SODIUM CHLORIDE 0.9% 1,000 ML IV ONE (02:03)
[2019-10-19 02:08] LABS: ACETONE, SERUM Negative (Negative)
[2019-10-19] MEDS: HEPARIN 5,000 UNITS/ML, 1ML SQ SCH ×4 (02:30→18:30)
[2019-10-19] MEDS ORDERED: ASA/APAP/ CAFFEINE TABLET PO PRN (02:30)
[2019-10-19] MEDS ORDERED: DOCUSATE 100 MG CAPSULE PO PRN (02:30)
[2019-10-19] MEDS ORDERED: ACETAMINOPHEN 325 MG TABLET PO PRN ×2 (02:30→08:00)
[2019-10-19] MEDS ORDERED: ONDANSETRON 2MG/ML, 2ML IVPush PRN (02:30)
[2019-10-19] MEDS ORDERED: GUAIFENESIN/DM 200-20MG, 10ML UDC PO PRN (02:30)
[2019-10-19] MEDS ORDERED: hydrALAzine 20 MG/ML, 1ML IVPush PRN (02:30)
[2019-10-19] MEDS ORDERED: SODIUM CHLORIDE 0.9% 1,000 ML IV SCH (02:30)
[2019-10-19] MEDS ORDERED: METHOCARBAMOL 500 MG TABLET PO PRN (02:30)
[2019-10-19] MEDS ORDERED: SODIUM CHLORIDE FLUSH 10ML SYR IVF PRN (02:30)
[2019-10-19] MEDS ORDERED: TEMAZEPAM 15 MG CAPSULE PO PRN (02:30)
[2019-10-19] MEDS ORDERED: KETOROLAC 30 MG/1 ML IV PRN (02:30)
--- NOTE | 2019-10-19 02:44 | NUR ---
FS of "hi" noted. aware.
[2019-10-19] MEDS: INSULIN LISPRO 100 UNITS/ML, PEN SQ-INSULIN SCH ×5 (03:00→21:00)
[2019-10-19 03:13] LABS: ANION GAP 6 mmol/L (5-15); CALCIUM 8.1 mg/dL (8.5-10.1); CHLORIDE 102 mmol/L (98-107); CREATININE 1.28 mg/dL (0.7-1.3)
[2019-10-19 03:23] VITALS: BP 112/72
[2019-10-19 07:46] LABS: MEAN CORPUSCULAR HEMOGLOBIN 30.1 pg (27.5-34.5); MEAN CORPUSCULAR HGB CONC 33.9 g/dL (33.2-36.2); MEAN CORPUSCULAR VOLUME 88.7 fL (81-97); MEAN PLATELET VOLUME 6.9 fL (7.4-10.4); PLATELET COUNT 346 x10^3/uL (130-400); RED BLOOD COUNT 4.94 x10^6/uL (4.38-5.82); RED CELL DISTRIBUTION WIDTH 14.2 % (9.4-14.8)
[2019-10-19] MEDS: INSULIN GLARGINE 100 UNITS/ML, PEN SQ-INSULIN SCH ×2 (07:51→21:45)
[2019-10-19 08:50] LABS: MD YES
[2019-10-19 08:52] LABS: EOS#(MANUAL) 0.08 x10^3/uL (0.0-0.4); EOS% (MANUAL) 1 % (1-7); LYMPH#(MANUAL) 3.74 x10^3/uL (1-3.4); LYMPHS% (MANUAL) 48 % (22-44); MONOS#(MANUAL) 0.47 x10^3/uL (0.3-2.7); MONOS% (MANUAL) 6 % (2-9); REACTIVE LYMPHS # (MANUAL) 1.09 x10^3/uL (0-0); REACTIVE LYMPHS % (MANUAL) 14 % (0-0); SEG#(MANUAL) 2.42 x10^3/uL (1.8-6.8); SEGS% (MANUAL) 31 % (42-75)
[2019-10-19 08:54] LABS: <PLATELET ESTIMATE> ADEQUATE; <PLT MORPHOLOGY> NORMAL PLT MORPH; <RBC MORPHOLOGY> NORMAL
[2019-10-19] MEDS: SODIUM CHLORIDE 0.9% 1,000 ML IV SCH ×2 (12:12→22:12)
[2019-10-19] MEDS ORDERED: INSULIN GLARGINE 100 UNITS/ML, PEN SQ-INSULIN ONE ×2 (12:30)
[2019-10-19 14:19] VITALS: BP 109/69
[2019-10-19 20:47] VITALS: BP 112/74
[2019-10-20] MEDS: HEPARIN 5,000 UNITS/ML, 1ML SQ SCH ×3 (02:30→17:45)
[2019-10-20 02:59] VITALS: BP 126/78
[2019-10-20 06:03] LABS: ANION GAP 5 mmol/L (5-15); CALCIUM 7.9 mg/dL (8.5-10.1); CHLORIDE 108 mmol/L (98-107)
[2019-10-20 06:04] LABS: CREATININE 0.75 mg/dL (0.7-1.3)
[2019-10-20 07:20] VITALS: BP 107/67
[2019-10-20] MEDS ORDERED: POTASSIUM CHLORIDE 20 MEQ TAB.ER.PRT PO ONE (08:00)
[2019-10-20] MEDS: INSULIN GLARGINE 100 UNITS/ML, PEN SQ-INSULIN SCH ×2 (08:18→20:27)
[2019-10-20] MEDS: INSULIN LISPRO 100 UNITS/ML, PEN SQ-INSULIN SCH ×4 (08:18→19:26)
[2019-10-20] MEDS: SODIUM CHLORIDE 0.9% 1,000 ML IV SCH ×2 (08:25→19:26)
[2019-10-20 13:38] VITALS: BP 110/77
[2019-10-20 18:56] VITALS: BP 111/69
[2019-10-21] MEDS: HEPARIN 5,000 UNITS/ML, 1ML SQ SCH ×3 (01:20→17:29)
[2019-10-21 02:19] VITALS: BP 104/64
[2019-10-21 04:33] LABS: ANION GAP 6 mmol/L (5-15); CALCIUM 7.7 mg/dL (8.5-10.1); CHLORIDE 106 mmol/L (98-107); CREATININE 0.94 mg/dL (0.7-1.3)
[2019-10-21] MEDS: SODIUM CHLORIDE 0.9% 1,000 ML IV SCH ×2 (05:04→15:00)
[2019-10-21 06:59] VITALS: BP 106/72
[2019-10-21] MEDS: INSULIN GLARGINE 100 UNITS/ML, PEN SQ-INSULIN SCH ×3 (07:41→20:12)
[2019-10-21] MEDS: INSULIN LISPRO 100 UNITS/ML, PEN SQ-INSULIN SCH ×4 (07:42→20:12)
[2019-10-21] MEDS: CALCIUM/VITAMIN D3 250-125 TABLET PO SCH ×2 (08:32→20:11)
[2019-10-21 12:36] VITALS: BP 98/62
[2019-10-21 20:21] VITALS: BP 127/82
[2019-10-22] MEDS: HEPARIN 5,000 UNITS/ML, 1ML SQ SCH ×2 (00:56→10:30)
[2019-10-22 01:46] VITALS: BP 117/72
[2019-10-22] MEDS: SODIUM CHLORIDE 0.9% 1,000 ML IV SCH (02:35)
[2019-10-22 06:18] VITALS: BP 110/67
[2019-10-22] MEDS: INSULIN LISPRO 100 UNITS/ML, PEN SQ-INSULIN SCH ×3 (07:00→16:23)
[2019-10-22] MEDS: CALCIUM/VITAMIN D3 250-125 TABLET PO SCH (08:18)
[2019-10-22] MEDS: INSULIN GLARGINE 100 UNITS/ML, PEN SQ-INSULIN SCH (08:19)
[2019-10-22 10:24] LABS: ALANINE AMINOTRANSFERASE 23 U/L (12-78); ALBUMIN 2.7 g/dL (3.4-5.0); ANION GAP 5 mmol/L (5-15); CALCIUM 8.4 mg/dL (8.5-10.1); CHLORIDE 105 mmol/L (98-107); CREATININE 0.95 mg/dL (0.7-1.3)
[2019-10-22 10:27] LABS: ALKALINE PHOSPHATASE 73 U/L (45-117); BILIRUBIN,TOTAL 0.2 mg/dL (0.2-1.0)
[2019-10-22 11:12] LABS: BASOPHILS # (AUTO) 0.03 x10^3/uL (0-0.1); BASOPHILS % (AUTO) 1 % (0-1); EOSINOPHILS # (AUTO) 0.04 x10^3/uL (0-0.4); EOSINOPHILS % (AUTO) 1 % (1-7); LYMPHOCYTES # (AUTO) 1.83 x10^3/uL (1-3.4); LYMPHOCYTES % (AUTO) 36 % (22-44); MD SCAN; MEAN CORPUSCULAR HEMOGLOBIN 30.1 pg (27.5-34.5); MEAN CORPUSCULAR HGB CONC 33.3 g/dL (33.2-36.2); MEAN CORPUSCULAR VOLUME 90.4 fL (81-97); MEAN PLATELET VOLUME 7.2 fL (7.4-10.4); MONOCYTES # (AUTO) 0.27 x10^3/uL (0.2-0.8); MONOCYTES % (AUTO) 5 % (2-9); NEUTROPHILS # (AUTO) 2.86 x10^3/uL (1.8-6.8); NEUTROPHILS % (AUTO) 57 % (42-75); PLATELET COUNT 292 x10^3/uL (130-400); RED BLOOD COUNT 4.93 x10^6/uL (4.38-5.82); RED CELL DISTRIBUTION WIDTH 14.3 % (9.4-14.8)
[2019-10-22 12:33] VITALS: BP 118/81
[2019-10-22] MEDS ORDERED: INSU100I11 SQ-INSULIN (16:10)
[2019-10-22] MEDS ORDERED: INSU100I13 SQ-INSULIN ×2 (16:10)
[2019-10-22] MEDS ORDERED: INSULIN GLARGINE 100 UNITS/ML, PEN SQ-INSULIN SCH (21:00)
[2019-10-23] MEDS ORDERED: INSULIN GLARGINE 100 UNITS/ML, PEN SQ-INSULIN SCH (09:00)
== END 2019-10-22 17:10 | DRG 637 ==
LOC: ED 02:49 → EDIP 03:21 → INTOOBSV 03:21 → 5SO 03:31 → 4WST 03:33 → OBSVTOIN 14:26
PROVIDERS: ADMIT Internal Medicine; ATTEND Internal Medicine
DX: E11.10 Type 2 diabetes mellitus with ketoacidosis without coma (principal); E43 Unspecified severe protein-calorie malnutrition; N17.9 Acute kidney failure, unspecified; E87.1 Hypo-osmolality and hyponatremia; R45.851 Suicidal ideations; Z68.1 Body mass index [BMI] 19.9 or less, adult; F12.10 Cannabis abuse, uncomplicated; F10.10 Alcohol abuse, uncomplicated; G47.00 Insomnia, unspecified; F20.9 Schizophrenia, unspecified; E87.6 Hypokalemia; E83.51 Hypocalcemia; E87.5 Hyperkalemia; F11.10 Opioid abuse, uncomplicated; Z91.14 Patient's other noncompliance with medication regimen; Z79.4 Long term (current) use of insulin
CPT/HCPCS: 36415; 80048; 80053; 82010; 82040; 82330; 82803; 82947; 82962; 83036; 83735; 84100; 85025; 99291; G0378; J1644; J1815; J7030

== ENCOUNTER 2020-03-17 16:17 | Inpatient (IN) | payer MEDICAID ==
[~2020-03-17] VITALS: Ht 190.5 cm; Wt 83.0 kg
[~2020-03-17 16:17] MED LIST changes: +INSU100I11 SQ-INSULIN; +INSU100I13 SQ-INSULIN
--- NOTE | 2020-03-17 16:28 | NUR ---
IT ADMINISTRATIVE ASSISTANT: FSBS >600.
[2020-03-17] MEDS ORDERED: SODIUM CHLORIDE 0.9% 1,000ML IVBOLUS ONE ×4 (17:00→18:30)
[2020-03-17] MEDS ORDERED: SODIUM CHLORIDE FLUSH 10ML SYR IVF ONE (17:00)
[2020-03-17 17:02] LABS: BASOPHILS % (AUTO) 1 % (0-1); EOSINOPHILS % (AUTO) 2 % (1-7); LYMPHOCYTES % (AUTO) 32 % (22-44); MEAN CORPUSCULAR HEMOGLOBIN 30.6 pg (27.5-34.5); MEAN CORPUSCULAR HGB CONC 34.8 g/dL (33.2-36.2); MEAN PLATELET VOLUME 7.3 fL (7.4-10.4); MONOCYTES % (AUTO) 6 % (2-9); NEUTROPHILS % (AUTO) 58 % (42-75); PLATELET COUNT 424 x10^3/uL (130-400); RED BLOOD COUNT 5.12 x10^6/uL (4.38-5.82); RED CELL DISTRIBUTION WIDTH 14.4 % (9.4-14.8)
[2020-03-17 17:03] LABS: MD NO
[2020-03-17 17:10] LABS: ALBUMIN 3.1 g/dL (3.4-5.0); ANION GAP 8 mmol/L (5-15); CALCIUM 8.1 mg/dL (8.5-10.1); CHLORIDE 94 mmol/L (98-107); CREATININE 1.35 mg/dL (0.7-1.3)
[2020-03-17 17:23] LABS: PH, VENOUS 7.348 pH (7.320-7.420)
[2020-03-17 17:32] LABS: ACETONE, SERUM Moderate(40mg/dL) (Negative)
[2020-03-17] MEDS ORDERED: INSULIN SINGLE DOSE, ER ONE ×4 (17:33→21:25)
[2020-03-17] MEDS ORDERED: INSULIN REGULAR 100 UNITS/ML, 3ML VIAL SQ-INSULIN ONE (18:00)
[2020-03-17] MEDS ORDERED: SODIUM CHLORIDE 0.9% 1,000 ML IV ONE (18:30)
[2020-03-17] MEDS ORDERED: ACETAMINOPHEN 325 MG TABLET PO PRN (18:30)
[2020-03-17] MEDS ORDERED: DOCUSATE 100 MG CAPSULE PO PRN (18:30)
[2020-03-17] MEDS: SODIUM CHLORIDE 0.9% 1,000 ML IV SCH ×2 (18:30→19:00)
[2020-03-17] MEDS ORDERED: ONDANSETRON 2MG/ML, 2ML IVPush PRN (18:30)
[2020-03-17] MEDS ORDERED: SODIUM CHLORIDE FLUSH 10ML SYR IVF PRN (18:30)
[2020-03-17] MEDS ORDERED: HEPARIN 5,000 UNITS/ML, 1ML ONE (19:08)
[2020-03-17] MEDS: HEPARIN 5,000 UNITS/ML, 1ML SQ SCH (19:29)
--- NOTE | 2020-03-17 20:05 | NUR ---
Break RN: Provided meal
[2020-03-17 20:42] LABS: ESTIMATED AVERAGE GLUCOSE 355 mg/dL (0-126)
[2020-03-17] MEDS ORDERED: INSULIN GLARGINE 100 UNITS/ML, PEN SQ-INSULIN SCH (21:00)
[2020-03-17] MEDS: INSULIN REGULAR 100 UNITS/ML, 3ML VIAL SQ-INSULIN SCH (21:00)
[2020-03-17] MEDS ORDERED: OLAN20TA5 PO (23:11)
[2020-03-17] MEDS ORDERED: FLUO20CA19 PO (23:11)
[2020-03-17 23:19] VITALS: BP 112/65
[2020-03-18 02:01] VITALS: BP 111/69
[2020-03-18] MEDS: HEPARIN 5,000 UNITS/ML, 1ML SQ SCH (02:21)
[2020-03-18] MEDS: SODIUM CHLORIDE 0.9% 1,000 ML IV SCH (04:45)
[2020-03-18 06:47] LABS: BASOPHILS % (AUTO) 1 % (0-1); EOSINOPHILS % (AUTO) 4 % (1-7); LYMPHOCYTES % (AUTO) 48 % (22-44); MEAN CORPUSCULAR HEMOGLOBIN 30.2 pg (27.5-34.5); MEAN CORPUSCULAR HGB CONC 35.1 g/dL (33.2-36.2); MONOCYTES % (AUTO) 8 % (2-9); NEUTROPHILS % (AUTO) 40 % (42-75); PLATELET COUNT 368 x10^3/uL (130-400); RED BLOOD COUNT 4.59 x10^6/uL (4.38-5.82); RED CELL DISTRIBUTION WIDTH 14.2 % (9.4-14.8)
[2020-03-18 06:48] LABS: ANION GAP 7 mmol/L (5-15); CALCIUM 7.7 mg/dL (8.5-10.1); CHLORIDE 108 mmol/L (98-107); CREATININE 0.81 mg/dL (0.7-1.3)
[2020-03-18] MEDS ORDERED: POTASSIUM CHLORIDE 20 MEQ TAB.ER.PRT PO ONE (07:00)
[2020-03-18 07:28] VITALS: BP 110/67
[2020-03-18 07:44] LABS: MD SCAN
[2020-03-18] MEDS: INSULIN REGULAR 100 UNITS/ML, 3ML VIAL SQ-INSULIN SCH (08:09)
[2020-03-18] MEDS ORDERED: NICOTINE 14MG/24 HR PATCH.TD24 TD SCH (09:00)
[2020-03-18] MEDS ORDERED: INSULIN GLARGINE 100 UNITS/ML, PEN SQ-INSULIN SCH (09:00)
== END 2020-03-18 09:34 | disposition home or self-care (01) | DRG 638 ==
LOC: ED 19:31 → EDIP 19:59 → UNDOADMIN 19:59 → 3WST 23:12 → DCLOUNGE 03-18 09:31
PROVIDERS: ADMIT Family Medicine; ATTEND Internal Medicine
DX: E11.65 Type 2 diabetes mellitus with hyperglycemia (principal); R45.851 Suicidal ideations; N17.9 Acute kidney failure, unspecified; E87.1 Hypo-osmolality and hyponatremia; Z79.4 Long term (current) use of insulin; F41.9 Anxiety disorder, unspecified; F32.9 Major depressive disorder, single episode, unspecified; F20.9 Schizophrenia, unspecified; Z72.0 Tobacco use; Z91.14 Patient's other noncompliance with medication regimen
CPT/HCPCS: 36415; 80048; 82010; 82040; 82803; 82962; 83036; 85025; G0378; J1644; J1815; J7030

== ENCOUNTER 2020-04-29 22:19 | Inpatient (IN) | payer MEDICAID ==
[~2020-04-29] VITALS: Ht 190.5 cm; Wt 79.2 kg
[~2020-04-29 22:19] MED LIST changes: +OLAN20TA5 PO
[2020-04-29] MEDS ORDERED: SODIUM CHLORIDE 0.9% 1,000ML IVBOLUS ONE ×2 (22:30→23:30)
[2020-04-29 23:10] LABS: PH, VENOUS 7.293 pH (7.320-7.420)
[2020-04-29 23:14] LABS: BASOPHILS % (AUTO) 1 % (0-1); EOSINOPHILS % (AUTO) 2 % (1-7); LYMPHOCYTES % (AUTO) 35 % (22-44); MEAN CORPUSCULAR HEMOGLOBIN 31.5 pg (27.5-34.5); MEAN CORPUSCULAR HGB CONC 34.7 g/dL (33.2-36.2); MEAN PLATELET VOLUME 7.4 fL (7.4-10.4); MONOCYTES % (AUTO) 8 % (2-9); NEUTROPHILS % (AUTO) 53 % (42-75); PLATELET COUNT 321 x10^3/uL (130-400); RED BLOOD COUNT 5.21 x10^6/uL (4.38-5.82); RED CELL DISTRIBUTION WIDTH 14.5 % (9.4-14.8)
[2020-04-29 23:16] LABS: MD NO
[2020-04-29 23:21] LABS: ALANINE AMINOTRANSFERASE 49 U/L (12-78); ALBUMIN 3.5 g/dL (3.4-5.0); ANION GAP 14 mmol/L (5-15); CALCIUM 8.6 mg/dL (8.5-10.1); CHLORIDE 93 mmol/L (98-107)
[2020-04-29 23:22] LABS: ACETONE, SERUM Moderate(40mg/dL) (Negative)
[2020-04-29 23:24] LABS: ALKALINE PHOSPHATASE 146 U/L (45-117); BILIRUBIN,TOTAL 0.4 mg/dL (0.2-1.0); TOTAL PROTEIN 8.1 g/dL (6.4-8.2)
[2020-04-29 23:42] LABS: MICROSCOPIC NOT IND
--- NOTE | 2020-04-29 23:58 | NUR ---
PATIENT AMBULATED UP TO BATHROOM. LIMP GAIT. IN NAD. SLEEPING MAJORITY OF STAY. RESPONSIVE TO QUESTIONS. A&OX4. COOPERATIVE WITH CARE. REFUSED UPON ARRIOVAL TO CHANGE INTO GOWN.
[2020-04-30] MEDS ORDERED: INSULIN REGULAR 100 UNITS/ML, 3ML VIAL SQ-INSULIN ONE
--- NOTE | 2020-04-30 00:26 | NUR ---
PATIENT CHANGED INTO GOWN; COOPERATIVE. NOTIFIED OF ADMITTANCE TO HOSPITAL FOR HYPERGLYCEMIA. PATIENT ACKNOWLEDGES THIS. 2ND IVF NS HUNG. HEAVY JACKET, BELT, JEANS, WALLET (I PERSONALLY DID NOT SEE THIS WALLET BUT I DID NOT WANT TO DIG THROUGH POCKETS D/T [facility] DRUG USE), SNEAKERS, SOCKS, AND LONG SLEEVE SHIRT IN BAG AND LOCKED UP IN ER. BLANKETS PROVIDED. NON-SLIP SOCKS ATTEMPTED TO BE APPLIED BY 1:1 SITTER BUT PATIENT C/O INTENSE NEUROPATHY PAIN IN BILATERAL FEET DURING PLACEMENT AND OPTED TO LEAVE THEM OFF FOR NOW. ADMITTING PROVIDER AT BEDSIDE FOR CONSULT. CALLED PHARMACY D/T OMNICELL BEING OUT OF HUMULIN. VERIFIED THIS MED BEING OUT OF STOCK WITH 2ND RN. PHARMACY STATED THEY WILL BE DOWN RASHI TO REFILL. I NOTIFIED THEM OF SEVERITY OF NEED
[2020-04-30] MEDS ORDERED: OLANZAPINE 10 MG TABLET PO SCH (00:30)
[2020-04-30] MEDS ORDERED: INSULIN SINGLE DOSE, ER ONE (00:38)
[2020-04-30] MEDS ORDERED: ONDANSETRON ODT 4 MG PO PRN (01:00)
[2020-04-30] MEDS ORDERED: hydrALAzine 20 MG/ML, 1ML IVPush PRN (01:00)
[2020-04-30] MEDS ORDERED: ACETAMINOPHEN 325 MG TABLET PO PRN (01:00)
[2020-04-30] MEDS ORDERED: DOCUSATE 100 MG CAPSULE PO PRN (01:00)
[2020-04-30] MEDS ORDERED: LIDODERM 5% PATCH TD PRN (01:00)
--- NOTE | 2020-04-30 01:16 | NUR ---
REPORT GIVEN TO FRANCIA STEPHENSON ON 4W.
[2020-04-30 01:57] LABS: SALICYLATE LEVEL 2.8 mg/dL (2.8-20.0)
--- NOTE | 2020-04-30 02:23 | NUR ---
CBG 279 PRIOR TO TRANSFER TO FLOOR
--- NOTE | 2020-04-30 02:25 | NUR ---
PHARMACY CALLED AND RN REQUESTED ZYPREXA TO BE RESCHEDULED FOR DAY TIME ADMIN. PT STATES HE TOOK IT ALREADY ON 04/29/20 AND TAKE IT IN THE AM. ALL PERSONAL BELONGINGS WITH PATIENT. TRANSFERRED VIA GURNEY WITH RN AND ITZ.
[2020-04-30 02:36] VITALS: BP 138/81
[2020-04-30] MEDS: LACTATED RINGERS 1,000 ML IV SCH ×2 (03:11→09:49)
[2020-04-30] MEDS: HEPARIN 5,000 UNITS/ML, 1ML SQ SCH ×3 (03:12→16:13)
[2020-04-30] MEDS: INSULIN REGULAR 100 UNITS/ML, 3ML VIAL SQ-INSULIN SCH ×2 (03:31→07:00)
[2020-04-30 06:22] LABS: BASOPHILS % (AUTO) 1 % (0-1); EOSINOPHILS % (AUTO) 2 % (1-7); LYMPHOCYTES % (AUTO) 38 % (22-44); MEAN CORPUSCULAR HEMOGLOBIN 30.8 pg (27.5-34.5); MEAN CORPUSCULAR HGB CONC 35.2 g/dL (33.2-36.2); MEAN PLATELET VOLUME 7.2 fL (7.4-10.4); MONOCYTES % (AUTO) 11 % (2-9); NEUTROPHILS % (AUTO) 48 % (42-75); PLATELET COUNT 357 x10^3/uL (130-400); RED BLOOD COUNT 4.99 x10^6/uL (4.38-5.82); RED CELL DISTRIBUTION WIDTH 14.2 % (9.4-14.8)
[2020-04-30 06:37] LABS: ANION GAP 7 mmol/L (5-15); CALCIUM 8.5 mg/dL (8.5-10.1); CHLORIDE 105 mmol/L (98-107); CREATININE 0.93 mg/dL (0.7-1.3)
[2020-04-30 06:38] LABS: MD NO
[2020-04-30 07:11] VITALS: BP 125/84
[2020-04-30 07:40] LABS: AMPHETAMINE SCREEN, URINE Negative (Negative); BARBITURATE SCREEN, URINE Negative (Negative); BENZODIAZEPINE SCREEN, URINE Negative (Negative); CANNABINOID SCREEN, URINE Positive (Negative); COCAINE SCREEN, URINE Negative (Negative); METHADONE SCREEN, URINE Negative (Negative); OPIATE SCREEN, URINE Negative (Negative)
[2020-04-30] MEDS: OLANZAPINE 10 MG TABLET PO SCH (07:58)
[2020-04-30] MEDS: FLUOXETINE HCL 20 MG CAPSULE PO SCH (07:58)
[2020-04-30 09:19] LABS: ANION GAP 6 mmol/L (5-15); CALCIUM 7.9 mg/dL (8.5-10.1); CHLORIDE 101 mmol/L (98-107); CREATININE 0.89 mg/dL (0.7-1.3)
[2020-04-30] MEDS ORDERED: INSULIN GLARGINE 100 UNITS/ML, PEN SQ-INSULIN SCH ×3 (11:00→21:00)
[2020-04-30] MEDS: INSULIN LISPRO 100 UNITS/ML, PEN SQ-INSULIN SCH ×3 (11:41→20:30)
[2020-04-30 13:06] LABS: ANION GAP 6 mmol/L (5-15); CHLORIDE 102 mmol/L (98-107); CREATININE 0.94 mg/dL (0.7-1.3)
[2020-04-30 13:07] VITALS: BP 112/67
[2020-04-30 17:08] LABS: ANION GAP 7 mmol/L (5-15); CALCIUM 8.6 mg/dL (8.5-10.1); CHLORIDE 104 mmol/L (98-107); CREATININE 1.05 mg/dL (0.7-1.3)
[2020-04-30] MEDS: GABAPENTIN 100 MG CAPSULE PO SCH ×2 (17:59→20:27)
[2020-04-30 19:00] VITALS: BP 103/65
[2020-04-30] MEDS: MELATONIN 5 MG TABLET PO PRN (20:27)
[2020-05-01] MEDS: HEPARIN 5,000 UNITS/ML, 1ML SQ SCH ×5 (00:33→21:40)
[2020-05-01 02:00] VITALS: BP 115/68
[2020-05-01] MEDS: GABAPENTIN 100 MG CAPSULE PO SCH ×4 (05:09→20:42)
[2020-05-01 07:18] VITALS: BP 104/65
[2020-05-01] MEDS: INSULIN LISPRO 100 UNITS/ML, PEN SQ-INSULIN SCH ×4 (08:27→20:43)
[2020-05-01] MEDS: FLUOXETINE HCL 20 MG CAPSULE PO SCH (08:29)
[2020-05-01] MEDS: OLANZAPINE 10 MG TABLET PO SCH ×2 (08:29→20:43)
[2020-05-01] MEDS: INSULIN GLARGINE 100 UNITS/ML, PEN SQ-INSULIN SCH ×2 (08:34→20:44)
[2020-05-01 10:05] LABS: ANION GAP 4 mmol/L (5-15); CALCIUM 8.4 mg/dL (8.5-10.1); CHLORIDE 99 mmol/L (98-107); CREATININE 1.13 mg/dL (0.7-1.3)
[2020-05-01 13:10] VITALS: BP 94/58
[2020-05-01 19:42] VITALS: BP 97/59
[2020-05-01] MEDS: MELATONIN 5 MG TABLET PO PRN (20:42)
[2020-05-02 01:15] VITALS: BP 97/60
[2020-05-02] MEDS: GABAPENTIN 100 MG CAPSULE PO SCH ×4 (05:37→20:01)
[2020-05-02] MEDS ORDERED: ATOR40TA78 PO (05:54)
[2020-05-02 06:35] VITALS: BP 115/72
[2020-05-02] MEDS: INSULIN LISPRO 100 UNITS/ML, PEN SQ-INSULIN SCH ×4 (07:50→20:01)
[2020-05-02] MEDS ORDERED: POTASSIUM CHLORIDE 20 MEQ TAB.ER.PRT PO ONE (08:30)
[2020-05-02] MEDS: FLUOXETINE HCL 20 MG CAPSULE PO SCH (08:42)
[2020-05-02] MEDS: HEPARIN 5,000 UNITS/ML, 1ML SQ SCH ×3 (08:43→20:02)
[2020-05-02] MEDS: INSULIN GLARGINE 100 UNITS/ML, PEN SQ-INSULIN SCH ×2 (08:43→20:00)
[2020-05-02] MEDS ORDERED: INSU100I11 SQ-INSULIN (10:33)
[2020-05-02] MEDS ORDERED: INSU100I13 SQ-INSULIN (10:33)
[2020-05-02 13:13] VITALS: BP 97/65
[2020-05-02 18:52] VITALS: BP 114/75
[2020-05-02] MEDS: MELATONIN 5 MG TABLET PO PRN (20:02)
[2020-05-02] MEDS ORDERED: OLANZAPINE 10 MG TABLET PO SCH (21:00)
[2020-05-03 00:10] VITALS: BP 96/69
[2020-05-03] MEDS: GABAPENTIN 100 MG CAPSULE PO SCH ×2 (05:14→10:49)
[2020-05-03 05:58] LABS: ANION GAP 6 mmol/L (5-15); CALCIUM 8.5 mg/dL (8.5-10.1); CHLORIDE 106 mmol/L (98-107)
[2020-05-03] MEDS: INSULIN LISPRO 100 UNITS/ML, PEN SQ-INSULIN SCH ×2 (07:00→11:11)
[2020-05-03 07:19] VITALS: BP 110/69
[2020-05-03] MEDS: HEPARIN 5,000 UNITS/ML, 1ML SQ SCH (09:00)
[2020-05-03] MEDS: INSULIN GLARGINE 100 UNITS/ML, PEN SQ-INSULIN SCH (09:13)
[2020-05-03] MEDS: FLUOXETINE HCL 20 MG CAPSULE PO SCH (09:13)
[2020-05-03 12:10] VITALS: BP 116/67
== END 2020-05-03 13:24 | DRG 637 ==
LOC: ED 22:49 → EDIP 04-30 00:06 → 4WST 04-30 02:29
PROVIDERS: ADMIT Family Medicine; ATTEND Hospitalist
DX: E10.10 Type 1 diabetes mellitus with ketoacidosis without coma (principal); N17.0 Acute kidney failure with tubular necrosis; R45.851 Suicidal ideations; E10.42 Type 1 diabetes mellitus with diabetic polyneuropathy; E86.0 Dehydration; E87.6 Hypokalemia; F12.90 Cannabis use, unspecified, uncomplicated; F15.10 Other stimulant abuse, uncomplicated; F17.210 Nicotine dependence, cigarettes, uncomplicated; F20.9 Schizophrenia, unspecified; F32.9 Major depressive disorder, single episode, unspecified; F41.9 Anxiety disorder, unspecified; Z20.822 Contact with and (suspected) exposure to COVID-19; Z59.0 Homelessness; Z79.4 Long term (current) use of insulin; Z86.16 Personal history of COVID-19; Z91.19 Patient's noncompliance with other medical treatment and regimen; Z91.5 Personal history of self-harm; Z79.899 Other long term (current) drug therapy; Z79.891 Long term (current) use of opiate analgesic; Z79.01 Long term (current) use of anticoagulants
CPT/HCPCS: 36415; 71045; 80048; 80053; 80299; 80307; 80320; 80329; 81003; 82010; 82803; 82962; 84443; 85025; 87635; 93005; 96360; 99285; G0378; J1644; J1815; G0480; J7030; J7120

== ENCOUNTER 2020-10-24 10:00 | Inpatient (IN) | payer MEDICAID ==
[~2020-10-24] VITALS: Ht 190.5 cm; Wt 76.3 kg
[~2020-10-24 10:00] MED LIST changes: +ATOR40TA78 PO
[2020-10-24] MEDS ORDERED: SODIUM CHLORIDE 0.9% 1,000ML IVBOLUS ONE ×2 (10:30→12:00)
--- NOTE | 2020-10-24 10:36 | NUR ---
PT CAME IN CO HIGH BLOOD SUGAR. TYPE 1 DM. PT REPORTS FEELING WEAK THE PAST 2 DAYS AND HE RAN OUT OF HIS INSULIN. PT RESTING IN [facility]. LABS DRAWN. IV FLUIDS INFUSING.
[2020-10-24 10:51] LABS: PH, VENOUS 7.349 pH (7.320-7.420)
[2020-10-24 10:52] LABS: FIO2 ROOM AIR %
[2020-10-24 10:57] LABS: BASOPHILS % (AUTO) 1 % (0-1); EOSINOPHILS % (AUTO) 1 % (1-7); LYMPHOCYTES % (AUTO) 29 % (22-44); MEAN CORPUSCULAR HEMOGLOBIN 31.2 pg (27.5-34.5); MEAN PLATELET VOLUME 7.9 fL (7.4-10.4); MONOCYTES % (AUTO) 6 % (2-9); NEUTROPHILS % (AUTO) 64 % (42-75); PLATELET COUNT 310 x10^3/uL (130-400); RED BLOOD COUNT 4.37 x10^6/uL (4.38-5.82); RED CELL DISTRIBUTION WIDTH 13.4 % (9.4-14.8)
[2020-10-24 11:05] LABS: ALBUMIN 2.8 g/dL (3.4-5.0); ANION GAP 8 mmol/L (5-15); CHLORIDE 90 mmol/L (98-107)
[2020-10-24 11:09] LABS: ALANINE AMINOTRANSFERASE 36 U/L (12-78); ALKALINE PHOSPHATASE 249 U/L (45-117); BILIRUBIN,TOTAL 0.4 mg/dL (0.2-1.0); CREATININE 1.48 mg/dL (0.7-1.3); TOTAL PROTEIN 6.4 g/dL (6.4-8.2)
[2020-10-24 11:11] LABS: MICROSCOPIC NOT IND
[2020-10-24 11:15] LABS: ACETONE, SERUM Large (80mg/dL) (Negative)
--- NOTE | 2020-10-24 11:40 | NUR ---
fingerstick blood glucose "high'
[2020-10-24 12:58] LABS: ANION GAP 9 mmol/L (5-15); CALCIUM 7.8 mg/dL (8.5-10.1); CHLORIDE 89 mmol/L (98-107)
[2020-10-24 12:59] LABS: CREATININE 1.38 mg/dL (0.7-1.3)
--- NOTE | 2020-10-24 13:11 | NUR ---
fingerstick blood gluocse reading "high"
[2020-10-24] MEDS ORDERED: INSULIN SINGLE DOSE, ER ONE (13:12)
[2020-10-24] MEDS ORDERED: INSULIN REGULAR 100 UNITS/ML, 3ML VIAL IVPush ONE (13:30)
[2020-10-24] MEDS: SODIUM CHLORIDE 0.9% 1,000 ML IV SCH ×2 (15:30→23:00)
[2020-10-24] MEDS ORDERED: ONDANSETRON 2MG/ML, 2ML IVPush PRN (15:30)
[2020-10-24] MEDS ORDERED: ACETAMINOPHEN 325 MG TABLET PO PRN (15:30)
[2020-10-24 16:04] LABS: ANION GAP 5 mmol/L (5-15); CALCIUM 7.8 mg/dL (8.5-10.1); CHLORIDE 98 mmol/L (98-107); CREATININE 1.04 mg/dL (0.7-1.3)
[2020-10-24] MEDS: INSULIN LISPRO 100 UNITS/ML, PEN SQ-INSULIN SCH ×2 (18:03→20:50)
[2020-10-24 19:07] VITALS: BP 134/88
[2020-10-24 19:40] LABS: AMPHETAMINE SCREEN, URINE Positive (Negative); BARBITURATE SCREEN, URINE Negative (Negative); BENZODIAZEPINE SCREEN, URINE Negative (Negative); CANNABINOID SCREEN, URINE Negative (Negative); COCAINE SCREEN, URINE Negative (Negative); METHADONE SCREEN, URINE Negative (Negative); OPIATE SCREEN, URINE Negative (Negative)
[2020-10-24 21:23] LABS: ANION GAP 4 mmol/L (5-15); CALCIUM 8.5 mg/dL (8.5-10.1); CHLORIDE 102 mmol/L (98-107); CREATININE 0.96 mg/dL (0.7-1.3)
[2020-10-25 00:25] VITALS: BP 137/79
[2020-10-25] MEDS: SODIUM CHLORIDE 0.9% 1,000 ML IV SCH (04:00)
[2020-10-25 05:00] LABS: BASOPHILS % (AUTO) 1 % (0-1); EOSINOPHILS % (AUTO) 1 % (1-7); LYMPHOCYTES % (AUTO) 42 % (22-44); MEAN CORPUSCULAR HEMOGLOBIN 31.4 pg (27.5-34.5); MEAN CORPUSCULAR HGB CONC 36.3 g/dL (33.2-36.2); MEAN PLATELET VOLUME 7.1 fL (7.4-10.4); MONOCYTES % (AUTO) 6 % (2-9); NEUTROPHILS % (AUTO) 50 % (42-75); PLATELET COUNT 301 x10^3/uL (130-400); RED BLOOD COUNT 4.25 x10^6/uL (4.38-5.82); RED CELL DISTRIBUTION WIDTH 13.1 % (9.4-14.8)
[2020-10-25 05:14] LABS: ANION GAP 5 mmol/L (5-15); CALCIUM 7.6 mg/dL (8.5-10.1); CHLORIDE 103 mmol/L (98-107)
[2020-10-25 05:28] LABS: CREATININE 0.61 mg/dL (0.7-1.3)
[2020-10-25 07:26] VITALS: BP 110/76
[2020-10-25] MEDS: FLUOXETINE HCL 20 MG CAPSULE PO SCH (08:51)
[2020-10-25] MEDS: INSULIN LISPRO 100 UNITS/ML, PEN SQ-INSULIN SCH ×4 (08:52→22:12)
[2020-10-25] MEDS ORDERED: POTASSIUM CHLORIDE 20 MEQ TAB.ER.PRT PO ONE (09:00)
[2020-10-25 12:26] LABS: ANION GAP 4 mmol/L (5-15); CHLORIDE 99 mmol/L (98-107); CREATININE 0.83 mg/dL (0.7-1.3)
[2020-10-25 13:30] VITALS: BP 120/74
[2020-10-25 16:20] LABS: ANION GAP 5 mmol/L (5-15); CALCIUM 8.2 mg/dL (8.5-10.1); CHLORIDE 103 mmol/L (98-107); CREATININE 0.92 mg/dL (0.7-1.3)
[2020-10-25] MEDS ORDERED: INSULIN GLARGINE 100 UNITS/ML, PEN SQ-INSULIN SCH (21:00)
[2020-10-25 21:39] VITALS: BP 115/65
[2020-10-26 00:01] VITALS: BP 113/70
[2020-10-26 05:05] LABS: BASOPHILS % (AUTO) 1 % (0-1); EOSINOPHILS % (AUTO) 1 % (1-7); LYMPHOCYTES % (AUTO) 51 % (22-44); MEAN CORPUSCULAR HGB CONC 35.6 g/dL (33.2-36.2); MEAN PLATELET VOLUME 7.5 fL (7.4-10.4); MONOCYTES % (AUTO) 5 % (2-9); NEUTROPHILS % (AUTO) 42 % (42-75); PLATELET COUNT 328 x10^3/uL (130-400); RED BLOOD COUNT 4.65 x10^6/uL (4.38-5.82); RED CELL DISTRIBUTION WIDTH 13.7 % (9.4-14.8)
[2020-10-26 05:17] LABS: ANION GAP 4 mmol/L (5-15); CALCIUM 8.1 mg/dL (8.5-10.1); CHLORIDE 102 mmol/L (98-107)
[2020-10-26 05:24] LABS: ALANINE AMINOTRANSFERASE 37 U/L (12-78); ALBUMIN 2.4 g/dL (3.4-5.0); ALKALINE PHOSPHATASE 83 U/L (45-117); BILIRUBIN,TOTAL 0.2 mg/dL (0.2-1.0); CREATININE 0.69 mg/dL (0.7-1.3); TOTAL PROTEIN 5.8 g/dL (6.4-8.2)
[2020-10-26] MEDS ORDERED: POTASSIUM CHLORIDE 20 MEQ TAB.ER.PRT PO ONE (07:30)
[2020-10-26 07:42] VITALS: BP 119/85
[2020-10-26] MEDS: FLUOXETINE HCL 20 MG CAPSULE PO SCH (08:45)
[2020-10-26] MEDS: INSULIN LISPRO 100 UNITS/ML, PEN SQ-INSULIN SCH ×2 (08:48→11:14)
[2020-10-26] MEDS ORDERED: INSULIN GLARGINE 100 UNITS/ML, PEN SQ-INSULIN SCH (09:00)
[2020-10-26 09:23] LABS: ESTIMATED AVERAGE GLUCOSE 355 mg/dL (0-126)
[2020-10-26] MEDS ORDERED: INSU100I13 SQ-INSULIN (12:48)
[2020-10-26 13:06] VITALS: BP 124/81
== END 2020-10-26 14:00 | disposition home or self-care (01) | DRG 638 ==
LOC: ED 10:33 → EDIP 13:16 → 4WST 17:15 → DCLOUNGE 10-26 13:57
PROVIDERS: ADMIT Family Medicine; ATTEND Hospitalist
DX: E11.00 Type 2 diabetes mellitus with hyperosmolarity without nonketotic hyperglycemic-hyperosmolar coma (NKHHC) (principal); E87.1 Hypo-osmolality and hyponatremia; E87.2 Acidosis; N17.9 Acute kidney failure, unspecified; E78.5 Hyperlipidemia, unspecified; E87.5 Hyperkalemia; E87.6 Hypokalemia; F12.90 Cannabis use, unspecified, uncomplicated; F15.90 Other stimulant use, unspecified, uncomplicated; Z79.4 Long term (current) use of insulin; Z91.19 Patient's noncompliance with other medical treatment and regimen
CPT/HCPCS: 36415; 80048; 80053; 80307; 81003; 82010; 82803; 82947; 82962; 83036; 83735; 83930; 84100; 84443; 85025; 96361; 96374; G0378; J1815; J7030

== ENCOUNTER 2020-11-27 19:40 | Inpatient (IN) | payer MEDICAID ==
[~2020-11-27] VITALS: Ht 190.5 cm; Wt 81.7 kg
--- NOTE | 2020-11-27 19:56 | NUR ---
[facility] FROM [facility] FOR "HIGH BLOOD SUGARS". EMS REPORTS PATIENT'S BLOOD SUGAR LEVELS HAVE READ "HIGH" ON THE MONITORS FROM [facility] AND ON THE EMS MONITORS. PATIENT IS LETHARGIC, REPORTS FEELING DIZZY, INCREASE THIRST, INCREASE URINATION. PATIENT REPORTS HOME BS LEVELS ARE USUALY IN THE 500s
--- NOTE | 2020-11-27 20:15 | NUR ---
PATIENT REPORTS HE TAKES 30 UNITS OF INSULIN TWICE A DAY AND USES A SLIDING SCALE FOR MEALS AND SNACKS, BUT [facility] HAS NOT BEEN USING A SLIDING SCALE FOR HIS MEALS.
[2020-11-27] MEDS ORDERED: SODIUM CHLORIDE 0.9% 1,000ML IVBOLUS ONE (20:30)
[2020-11-27 20:39] LABS: PH, VENOUS 7.398 pH (7.320-7.420)
[2020-11-27 20:40] LABS: FIO2 ROOM AIR %
[2020-11-27 20:43] LABS: BASOPHILS % (AUTO) 0 % (0-1); EOSINOPHILS % (AUTO) 1 % (1-7); LYMPHOCYTES % (AUTO) 51 % (22-44); MEAN CORPUSCULAR HEMOGLOBIN 31.4 pg (27.5-34.5); MEAN CORPUSCULAR HGB CONC 35.2 g/dL (33.2-36.2); MEAN PLATELET VOLUME 7.4 fL (7.4-10.4); MONOCYTES % (AUTO) 7 % (2-9); NEUTROPHILS % (AUTO) 40 % (42-75); PLATELET COUNT 337 x10^3/uL (130-400); RED BLOOD COUNT 4.48 x10^6/uL (4.38-5.82); RED CELL DISTRIBUTION WIDTH 14.2 % (9.4-14.8)
[2020-11-27 20:53] LABS: ALANINE AMINOTRANSFERASE 43 U/L (12-78); ALBUMIN 2.4 g/dL (3.4-5.0); ANION GAP 8 mmol/L (5-15); CHLORIDE 98 mmol/L (98-107); CREATININE 1.42 mg/dL (0.7-1.3)
--- NOTE | 2020-11-27 20:53 | NUR ---
PATIENT SLEEPING ON [place] AT THIS TIME, VSS
[2020-11-27 20:55] LABS: ALKALINE PHOSPHATASE 144 U/L (45-117); BILIRUBIN,TOTAL 0.2 mg/dL (0.2-1.0)
[2020-11-27 20:56] LABS: ACETONE, SERUM Trace (Negative)
[2020-11-27] MEDS ORDERED: INSULIN SINGLE DOSE, ER ONE ×4 (21:22→21:38)
[2020-11-27] MEDS ORDERED: LACTATED RINGERS 1,000 ML IV SCH (21:30)
[2020-11-27] MEDS ORDERED: ACETAMINOPHEN 325 MG TABLET PO PRN (21:30)
[2020-11-27] MEDS ORDERED: INSULIN REGULAR 100 UNITS/ML, 3ML VIAL SQ-INSULIN ONE (21:30)
[2020-11-27] MEDS ORDERED: POLYETHYLENE GLYCOL 17 GM PACKET PO PRN (21:30)
[2020-11-27] MEDS ORDERED: ONDANSETRON 2MG/ML, 2ML IVPush PRN (21:30)
[2020-11-27] MEDS ORDERED: INSULIN REGULAR 100 UNITS/ML, 3ML VIAL IVPush ONE (21:30)
[2020-11-27] MEDS ORDERED: MELATONIN 5 MG TABLET PO PRN (21:30)
[2020-11-27] MEDS: ENOXAPARIN 40 MG/0.4 ML SQ SCH (21:30)
[2020-11-27] MEDS ORDERED: LABETALOL 5MG/ML, 20ML IVPush PRN (21:30)
[2020-11-27 21:43] LABS: AMPHETAMINE SCREEN, URINE Negative (Negative); BARBITURATE SCREEN, URINE Negative (Negative); BENZODIAZEPINE SCREEN, URINE Negative (Negative); CANNABINOID SCREEN, URINE Negative (Negative); COCAINE SCREEN, URINE Negative (Negative); METHADONE SCREEN, URINE Negative (Negative); OPIATE SCREEN, URINE Negative (Negative)
--- NOTE | 2020-11-27 21:55 | NUR ---
Pt to be admitted to MEDICAL, room 359. Report called to RAUL.
[2020-11-27] MEDS ORDERED: GLUCAGON 1 MG IM PRN (22:00)
[2020-11-27] MEDS ORDERED: INSULIN GLARGINE 100 UNITS/ML, PEN SQ-INSULIN SCH (22:00)
[2020-11-27] MEDS ORDERED: DEXTROSE 4 GM TAB.CHEW PO PRN (22:00)
[2020-11-27] MEDS ORDERED: DEXTROSE 50%, 50ML SYRINGE IVPush PRN (22:00)
[2020-11-27 22:26] VITALS: BP 122/75
[2020-11-27] MEDS ORDERED: INSU100C SQ-INSULIN (22:50)
[2020-11-27] MEDS: INSULIN LISPRO 100 UNITS/ML, PEN SQ-INSULIN SCH (23:41)
[2020-11-28 01:01] VITALS: BP 110/73
[2020-11-28 05:45] LABS: BASOPHILS % (AUTO) 1 % (0-1); EOSINOPHILS % (AUTO) 1 % (1-7); LYMPHOCYTES % (AUTO) 50 % (22-44); MEAN CORPUSCULAR HEMOGLOBIN 30.8 pg (27.5-34.5); MEAN CORPUSCULAR HGB CONC 35.1 g/dL (33.2-36.2); MEAN PLATELET VOLUME 7.4 fL (7.4-10.4); MONOCYTES % (AUTO) 8 % (2-9); NEUTROPHILS % (AUTO) 39 % (42-75); PLATELET COUNT 370 x10^3/uL (130-400); RED BLOOD COUNT 4.68 x10^6/uL (4.38-5.82); RED CELL DISTRIBUTION WIDTH 14.4 % (9.4-14.8)
[2020-11-28 05:57] LABS: ANION GAP 10 mmol/L (5-15); CALCIUM 8.9 mg/dL (8.5-10.1); CHLORIDE 101 mmol/L (98-107); CREATININE 1.04 mg/dL (0.7-1.3)
[2020-11-28] MEDS ORDERED: MAGNESIUM SULFATE PMX 2GM/50ML 50 ML IV ONE (06:30)
[2020-11-28 07:36] VITALS: BP 124/81
[2020-11-28] MEDS: INSULIN LISPRO 100 UNITS/ML, PEN SQ-INSULIN SCH ×4 (08:00→21:19)
[2020-11-28] MEDS: SODIUM CHLORIDE FLUSH 10ML SYR IVF SCH ×2 (12:07→21:00)
[2020-11-28] MEDS: NICOTINE 21 MG/24 HR PATCH.TD24 TD SCH (12:32)
[2020-11-28 13:15] VITALS: BP 106/65
[2020-11-28 19:05] VITALS: BP 102/67
[2020-11-28] MEDS: ENOXAPARIN 40 MG/0.4 ML SQ SCH (21:17)
[2020-11-28] MEDS: INSULIN GLARGINE 100 UNITS/ML, PEN SQ-INSULIN SCH (21:19)
[2020-11-29 00:17] VITALS: BP 106/75
[2020-11-29 05:35] LABS: BASOPHILS % (AUTO) 1 % (0-1); EOSINOPHILS % (AUTO) 1 % (1-7); LYMPHOCYTES % (AUTO) 48 % (22-44); MEAN CORPUSCULAR HEMOGLOBIN 30.6 pg (27.5-34.5); MEAN CORPUSCULAR HGB CONC 34.4 g/dL (33.2-36.2); MEAN PLATELET VOLUME 7.4 fL (7.4-10.4); MONOCYTES % (AUTO) 8 % (2-9); NEUTROPHILS % (AUTO) 43 % (42-75); PLATELET COUNT 396 x10^3/uL (130-400); RED BLOOD COUNT 5.01 x10^6/uL (4.38-5.82); RED CELL DISTRIBUTION WIDTH 14.3 % (9.4-14.8)
[2020-11-29 05:39] LABS: ANION GAP 6 mmol/L (5-15); CALCIUM 8.5 mg/dL (8.5-10.1); CHLORIDE 97 mmol/L (98-107); CREATININE 0.95 mg/dL (0.7-1.3)
[2020-11-29] MEDS: INSULIN LISPRO 100 UNITS/ML, PEN SQ-INSULIN SCH ×4 (07:46→21:14)
[2020-11-29] MEDS: NICOTINE 21 MG/24 HR PATCH.TD24 TD SCH (07:46)
[2020-11-29] MEDS: SODIUM CHLORIDE FLUSH 10ML SYR IVF SCH ×2 (07:46→21:15)
[2020-11-29 08:05] VITALS: BP 103/68
[2020-11-29] MEDS: INSULIN GLARGINE 100 UNITS/ML, PEN SQ-INSULIN SCH (09:44)
[2020-11-29] MEDS: OXYcodone IR 5MG TABLET PO PRN ×3 (11:14→22:45)
[2020-11-29] MEDS ORDERED: INSULIN GLARGINE 100 UNITS/ML, PEN SQ-INSULIN ONE (11:30)
[2020-11-29 13:20] VITALS: BP 94/60
[2020-11-29 19:19] VITALS: BP 109/70
[2020-11-29] MEDS ORDERED: INSULIN GLARGINE 100 UNITS/ML, PEN SQ-INSULIN SCH (21:00)
[2020-11-29] MEDS: ENOXAPARIN 40 MG/0.4 ML SQ SCH (21:10)
[2020-11-29] MEDS ORDERED: SODIUM CHLORIDE 0.9%, 500ML IVBOLUS ONE (23:00)
[2020-11-30 00:05] VITALS: BP 94/52
[2020-11-30] MEDS ORDERED: INSULIN LISPRO 100 UNIT/ML, 3ML VIAL SQ-INSULIN ONE (00:30)
[2020-11-30] MEDS: OXYcodone IR 5MG TABLET PO PRN ×4 (04:59→22:55)
[2020-11-30] MEDS: INSULIN GLARGINE 100 UNITS/ML, PEN SQ-INSULIN SCH ×2 (06:03→20:56)
[2020-11-30 06:55] LABS: ALBUMIN 2.5 g/dL (3.4-5.0); ANION GAP 5 mmol/L (5-15); CALCIUM 7.8 mg/dL (8.5-10.1); CHLORIDE 96 mmol/L (98-107); CREATININE 1.14 mg/dL (0.7-1.3)
[2020-11-30] MEDS: INSULIN LISPRO 100 UNITS/ML, PEN SQ-INSULIN SCH ×4 (07:48→20:55)
[2020-11-30 08:00] VITALS: BP 109/74
[2020-11-30] MEDS: NICOTINE 21 MG/24 HR PATCH.TD24 TD SCH (08:19)
[2020-11-30] MEDS: SODIUM CHLORIDE FLUSH 10ML SYR IVF SCH ×2 (08:20→20:55)
[2020-11-30 14:45] VITALS: BP 118/77
[2020-11-30 20:44] VITALS: BP 113/76
[2020-11-30] MEDS: OLANZAPINE 10 MG TABLET PO SCH (20:54)
[2020-11-30] MEDS: ENOXAPARIN 40 MG/0.4 ML SQ SCH (20:56)
[2020-12-01 02:13] VITALS: BP 120/85
[2020-12-01 06:45] LABS: BASOPHILS % (AUTO) 2 % (0-1); EOSINOPHILS % (AUTO) 1 % (1-7); LYMPHOCYTES % (AUTO) 23 % (22-44); MEAN CORPUSCULAR HEMOGLOBIN 31.3 pg (27.5-34.5); MEAN CORPUSCULAR HGB CONC 35.4 g/dL (33.2-36.2); MEAN PLATELET VOLUME 7.1 fL (7.4-10.4); MONOCYTES % (AUTO) 9 % (2-9); NEUTROPHILS % (AUTO) 64 % (42-75); PLATELET COUNT 368 x10^3/uL (130-400); RED BLOOD COUNT 4.51 x10^6/uL (4.38-5.82); RED CELL DISTRIBUTION WIDTH 14.1 % (9.4-14.8)
[2020-12-01 06:51] LABS: ANION GAP 6 mmol/L (5-15); CALCIUM 8.2 mg/dL (8.5-10.1); CHLORIDE 102 mmol/L (98-107)
[2020-12-01 06:52] LABS: CREATININE 0.82 mg/dL (0.7-1.3)
[2020-12-01 07:14] VITALS: BP 105/65
[2020-12-01] MEDS: INSULIN LISPRO 100 UNITS/ML, PEN SQ-INSULIN SCH ×4 (07:40→20:18)
[2020-12-01] MEDS: NICOTINE 21 MG/24 HR PATCH.TD24 TD SCH (09:03)
[2020-12-01] MEDS: FLUOXETINE HCL 20 MG CAPSULE PO SCH (09:03)
[2020-12-01] MEDS: INSULIN GLARGINE 100 UNITS/ML, PEN SQ-INSULIN SCH ×2 (09:03→20:18)
[2020-12-01 10:09] LABS: ESTIMATED AVERAGE GLUCOSE 355 mg/dL (0-126)
[2020-12-01] MEDS: SODIUM CHLORIDE FLUSH 10ML SYR IVF SCH ×2 (12:08→20:17)
[2020-12-01 12:22] VITALS: BP 102/56
[2020-12-01 20:12] VITALS: BP 116/82
[2020-12-01] MEDS: OXYcodone IR 5MG TABLET PO PRN (20:17)
[2020-12-01] MEDS: OLANZAPINE 10 MG TABLET PO SCH (20:17)
[2020-12-01] MEDS: ENOXAPARIN 40 MG/0.4 ML SQ SCH (21:39)
[2020-12-01 23:50] VITALS: BP 94/52
[2020-12-02 06:18] VITALS: BP 99/63
[2020-12-02] MEDS: FLUOXETINE HCL 20 MG CAPSULE PO SCH (07:51)
[2020-12-02] MEDS: NICOTINE 21 MG/24 HR PATCH.TD24 TD SCH (07:51)
[2020-12-02] MEDS: INSULIN LISPRO 100 UNITS/ML, PEN SQ-INSULIN SCH ×4 (07:52→20:41)
[2020-12-02] MEDS: INSULIN GLARGINE 100 UNITS/ML, PEN SQ-INSULIN SCH ×2 (07:52→20:40)
[2020-12-02] MEDS: SODIUM CHLORIDE FLUSH 10ML SYR IVF SCH ×2 (07:52→20:41)
[2020-12-02] MEDS: OXYcodone IR 5MG TABLET PO PRN ×2 (07:56→16:30)
[2020-12-02 15:02] VITALS: BP 102/65
[2020-12-02 19:07] VITALS: BP 111/70
[2020-12-02] MEDS: OLANZAPINE 10 MG TABLET PO SCH (20:40)
[2020-12-02] MEDS: ENOXAPARIN 40 MG/0.4 ML SQ SCH (20:45)
[2020-12-03 00:49] VITALS: BP 103/71
[2020-12-03] MEDS: INSULIN LISPRO 100 UNITS/ML, PEN SQ-INSULIN SCH ×6 (07:00→20:15)
[2020-12-03 07:28] VITALS: BP 104/66
[2020-12-03] MEDS: FLUOXETINE HCL 20 MG CAPSULE PO SCH (08:46)
[2020-12-03] MEDS: OXYcodone IR 5MG TABLET PO PRN ×3 (08:46→21:37)
[2020-12-03] MEDS: NICOTINE 21 MG/24 HR PATCH.TD24 TD SCH (08:47)
[2020-12-03] MEDS: INSULIN GLARGINE 100 UNITS/ML, PEN SQ-INSULIN SCH ×2 (08:47→20:16)
[2020-12-03] MEDS: SODIUM CHLORIDE FLUSH 10ML SYR IVF SCH ×2 (08:48→20:14)
[2020-12-03 13:35] VITALS: BP_SYST 104; BP_SYST 133; BP_DIAS 69; BP_DIAS 87
[2020-12-03 18:13] VITALS: BP 125/87
[2020-12-03] MEDS: OLANZAPINE 10 MG TABLET PO SCH (20:14)
[2020-12-03] MEDS: ENOXAPARIN 40 MG/0.4 ML SQ SCH (20:15)
[2020-12-04 00:10] VITALS: BP 96/53
[2020-12-04 06:00] LABS: BASOPHILS % (AUTO) 1 % (0-1); EOSINOPHILS % (AUTO) 1 % (1-7); LYMPHOCYTES % (AUTO) 39 % (22-44); MEAN CORPUSCULAR HEMOGLOBIN 30.9 pg (27.5-34.5); MEAN CORPUSCULAR HGB CONC 34.5 g/dL (33.2-36.2); MEAN PLATELET VOLUME 6.7 fL (7.4-10.4); MONOCYTES % (AUTO) 10 % (2-9); NEUTROPHILS % (AUTO) 49 % (42-75); PLATELET COUNT 386 x10^3/uL (130-400); RED CELL DISTRIBUTION WIDTH 14.6 % (9.4-14.8)
[2020-12-04 06:01] LABS: ANION GAP 4 mmol/L (5-15); CALCIUM 8.8 mg/dL (8.5-10.1); CHLORIDE 103 mmol/L (98-107); CREATININE 0.79 mg/dL (0.7-1.3)
[2020-12-04] MEDS: OXYcodone IR 5MG TABLET PO PRN ×2 (06:30→21:22)
[2020-12-04 07:01] VITALS: BP 118/85
[2020-12-04] MEDS: INSULIN LISPRO 100 UNITS/ML, PEN SQ-INSULIN SCH ×4 (07:39→21:05)
[2020-12-04] MEDS: FLUOXETINE HCL 20 MG CAPSULE PO SCH (08:54)
[2020-12-04] MEDS: SODIUM CHLORIDE FLUSH 10ML SYR IVF SCH ×2 (08:54→21:05)
[2020-12-04] MEDS: NICOTINE 21 MG/24 HR PATCH.TD24 TD SCH (08:54)
[2020-12-04] MEDS: INSULIN GLARGINE 100 UNITS/ML, PEN SQ-INSULIN SCH (09:00)
[2020-12-04 13:13] VITALS: BP 100/64
[2020-12-04 19:23] VITALS: BP 112/77
[2020-12-04] MEDS ORDERED: INSULIN GLARGINE 100 UNITS/ML, PEN SQ-INSULIN SCH (21:00)
[2020-12-04] MEDS: ENOXAPARIN 40 MG/0.4 ML SQ SCH (21:05)
[2020-12-04] MEDS: OLANZAPINE 10 MG TABLET PO SCH (21:05)
[2020-12-04] MEDS ORDERED: OLAN20TA5 PO (21:08)
[2020-12-04] MEDS ORDERED: NICO-587 TD (21:08)
[2020-12-04] MEDS ORDERED: INSU100C SQ-INSULIN (21:08)
[2020-12-04] MEDS ORDERED: FLUO20CA19 PO (21:08)
[2020-12-04] MEDS ORDERED: INSU100I13 SQ-INSULIN (21:08)
[2020-12-05 00:13] VITALS: BP 97/60
[2020-12-05 06:36] VITALS: BP 95/61
[2020-12-05] MEDS: FLUOXETINE HCL 20 MG CAPSULE PO SCH (07:51)
[2020-12-05] MEDS: NICOTINE 21 MG/24 HR PATCH.TD24 TD SCH (07:51)
[2020-12-05] MEDS: SODIUM CHLORIDE FLUSH 10ML SYR IVF SCH (07:52)
[2020-12-05] MEDS: INSULIN LISPRO 100 UNITS/ML, PEN SQ-INSULIN SCH ×2 (07:53→11:36)
[2020-12-05] MEDS: INSULIN GLARGINE 100 UNITS/ML, PEN SQ-INSULIN SCH (08:59)
[2020-12-05 12:15] VITALS: BP 115/80
[2020-12-05] MEDS ORDERED: INSU100I13 SQ-INSULIN (12:23)
== END 2020-12-05 12:56 | disposition home or self-care (01) | DRG 682 ==
LOC: ED 20:00 → EDIP 22:35 → 3N 22:53
PROVIDERS: ADMIT Internal Medicine; ATTEND Internal Medicine
DX: N17.9 Acute kidney failure, unspecified (principal); G93.41 Metabolic encephalopathy; K85.90 Acute pancreatitis without necrosis or infection, unspecified; E10.42 Type 1 diabetes mellitus with diabetic polyneuropathy; E10.649 Type 1 diabetes mellitus with hypoglycemia without coma; E10.65 Type 1 diabetes mellitus with hyperglycemia; E83.42 Hypomagnesemia; E86.1 Hypovolemia; F12.90 Cannabis use, unspecified, uncomplicated; F15.90 Other stimulant use, unspecified, uncomplicated; F17.210 Nicotine dependence, cigarettes, uncomplicated; F19.10 Other psychoactive substance abuse, uncomplicated; F20.9 Schizophrenia, unspecified; F31.9 Bipolar disorder, unspecified; Z59.0 Homelessness; Z79.4 Long term (current) use of insulin; Z79.899 Other long term (current) drug therapy; Z91.14 Patient's other noncompliance with medication regimen; Z91.19 Patient's noncompliance with other medical treatment and regimen
CPT/HCPCS: 36415; 80048; 80053; 80307; 82010; 82040; 82803; 82947; 82962; 83036; 83690; 83735; 84100; 85025; 93005; 96361; 96374; 96375; G0378; J1815; J3475; J7030; J7040; J7120

== ENCOUNTER 2020-12-17 19:31 | Emergency (ER) | payer MEDICAID ==
[~2020-12-17] VITALS: Ht 190.5 cm; Wt 76.0 kg
[~2020-12-17 19:31] MED LIST changes: +INSU100C SQ-INSULIN; +NICO-587 TD
[2020-12-17 19:33] VITALS: BP 123/81
--- NOTE | 2020-12-18 01:58 | NUR ---
PT REFUSING TO WAKE AND LEAVE ROOM UPON D/C PAPER WORK AND INSTRUCTIONS. CALL PLACED TO HOSPITAL SECURITY FOR ASSISTANCE OF DISCHARGE.
== END 2020-12-18 02:24 | disposition home or self-care (01) ==
LOC: ED 20:00
DX: S93.601A Unspecified sprain of right foot, initial encounter (principal); E11.65 Type 2 diabetes mellitus with hyperglycemia; E11.40 Type 2 diabetes mellitus with diabetic neuropathy, unspecified; W01.0XXA Fall on same level from slipping, tripping and stumbling without subsequent striking against object, initial encounter; Y93.89 Activity, other specified; Y92.89 Other specified places as the place of occurrence of the external cause; Y99.8 Other external cause status
CPT/HCPCS: 99283